=== PATIENT | male | born 1940 | race Caucasian/White ===

== ENCOUNTER 2016-06-21 04:30 | Outpatient (CLI) | payer MEDICARE, OTHER | END 2016-06-21 04:31 | disposition EMS.NT | DX: R40.0 Somnolence (principal) ==

== ENCOUNTER 2017-09-19 08:00 | Outpatient (CLI) | payer MEDICARE, OTHER | END 2017-09-19 08:01 | LOC: LAB.R 08:00 | PROVIDERS: ATTEND Nurse Practitioner Primary Care | DX: N30.00 Acute cystitis without hematuria (principal); E11.9 Type 2 diabetes mellitus without complications | CPT/HCPCS: 87086; 87181 ==

== ENCOUNTER 2018-09-18 20:56 | Outpatient (CLI) | payer MEDICARE, OTHER | END 2018-09-18 20:57 | disposition critical access hospital (66) | LOC: EMS 20:56 | PROVIDERS: ATTEND Surgery | DX: S01.111A Laceration without foreign body of right eyelid and periocular area, initial encounter (principal); W01.0XXA Fall on same level from slipping, tripping and stumbling without subsequent striking against object, initial encounter; Y93.01 Activity, walking, marching and hiking; Y92.009 Unspecified place in unspecified non-institutional (private) residence as the place of occurrence of the external cause | CPT/HCPCS: A0425; A0429 ==

== ENCOUNTER 2018-09-18 21:16 | Emergency (ER) | payer MEDICARE, OTHER ==
[2018-09-18] MEDS ORDERED: BUFFERED LIDOCAINE 10 ML SYRINGE SUBQ STA (21:24)
--- NOTE | 2018-09-18 22:32 | ED Physician Documentation ---
PD HPI Fall - Stated complaint Stated Complaint: GLF - Chief complaint Chief Complaint: Laceration - History obtained from History obtained from: Patient, Family, EMS - History of Present Illness Mechanism of injury: Tripped Fall distance: Standing position Where injury occurred: Home Timing - onset: Today Injury(ies) location: Face Quality of pain: Pain Associated symptoms: No: LOC, AMS, Amnesia, Nasal drainage, Neck pain, Weakness, Paresthesias, Dyspnea, Nausea / vomiting, Hematemesis, Abdominal distension Symptoms improve with: Rest Worsens with: Movement, Palpation Contributing factors: No: Anticoagulated, Intoxicated Similar symptoms before: Has not had sx before Recently seen: Not recently seen - Additional information Additional information: 78-year-old male with a history of Parkinson's who has deep brain stimulators in place as well as advancing dementia was using his walker today when he tripped and fell and hit his head against a side table. He did not have any loss of consciousness he was attended to by his who witnessed the fall and she was able to control bleeding with direct pressure she called the ambulance and the patient has been transported to the hospital. He denies any pain in his neck denies any nausea. Review of Systems Unable to obtain: Dementia, Other (hx from ) Constitutional: denies: Fever, Chills Nose: denies: Congestion Throat: denies: Sore throat Cardiac: denies: Chest pain / pressure Respiratory: denies: Dyspnea, Cough GI: reports: Constipation (usual). denies: Vomiting : denies: Dysuria Musculoskeletal: denies: Neck pain, Back pain, Extremity pain Neurologic: reports: Head injury. denies: Generalized weakness, LOC PD PAST MEDICAL HISTORY - Past Medical History Past Medical History: Yes Neuro: Alzhiemer's, Dementia, Parkinson's Endocrine/Autoimmune: Type 2 diabetes : Benign prostate hypertrophy - Present Medications Home Medications: Ambulatory Orders Medication Instructions Recorded Confirmed Carbidopa/Levodopa [Carbidopa-Levo 1.5 tab PO Q4HR 09/18/18 09/18/18 ER 25-100 Tab] Cyanocobalamin (Vitamin B-12) 1,000 mcg PO DAILY 09/18/18 09/18/18 [Vitamin B-12] Finasteride 5 mg PO QPM 09/18/18 09/18/18 Insulin Glargine [Lantus Solostar] 4 units SUBQ DAILY 09/18/18 09/18/18 Metformin HCl 1,000 mg PO BID 09/18/18 09/18/18 Quetiapine Fumarate 25 mg PO QPM 09/18/18 09/18/18 Tamsulosin HCl [Flomax] 1 cap PO QPM 09/18/18 09/18/18 - Allergies Allergies/Adverse Reactions: Allergies Allergy/AdvReac Type Severity Reaction Status Date / Time No Known Drug Allergies Allergy Verified 09/18/18 21:23 - Social History Does the pt smoke?: No Smoking Status: Never smoker Does the pt drink ETOH?: No Does the pt have substance abuse?: No - Immunizations Immunizations are current?: No Immunizations: TDAP >10years/unknown PD ED PE NORMAL - Vitals Vital signs reviewed: Yes (hypertensive ) - General General: No acute distress, Well developed/nourished - HEENT HEENT: PERRL, EOMI, Other (There is a 3cm burst laceration to the right lateral eyebrow and 2 other superficial lacerations above this one is 2cm one is 1cm.) - Neck Neck: Supple, no meningeal sign, No bony TTP - Respiratory Respiratory: No respiratory distress - Derm Derm: Normal color, Warm and dry, No rash - Extremities Extremities: No deformity, No edema - Neuro Neuro: No motor deficit, No sensory deficit, Normal speech Eye Opening: Spontaneous Motor: Obeys Commands Verbal: Confused GCS Score: 14 - Psych Psych: Normal mood, Normal affect Results - Vitals Vitals: Vital Signs - 24 hr 09/18/18 21:18 Temperature 35.9 C L Heart Rate 73 Respiratory 18 Rate Blood Pressure 158/76 H O2 Saturation 100 Oxygen O2 Source Room air Procedures - Laceration (location) right eyebrow Wound type: Irregular, Into subcut fat, Clean Neurovascular status: Sensory intact, Motor intact, Vascular intact Anesthesia: Lidocaine 1%, With bicarb Wound Preparation: Hibiclens, Irrigated copiously NS, Wound explored, To the base Skin layer closure: Nylon, Dermabond (to the 2 other superficial lacerations), Interrupted, Size #-0 - enter number (6-0) Other: Patient tolerated well, No complications, Neurovascular intact, Dressing applied, Tetanus booster given PD MEDICAL DECISION MAKING - ED course Complexity details: re-evaluated patient, considered differential, d/w patient, d/w family ED course: 78-year-old male with a fall and laceration above his right eye has a laceration repair done with nylon and Dermabond and he tolerates this well. He is updated on his tetanus. He will follow-up with Dr. Begum. Departure - Departure Disposition: 01 Home, Self Care Clinical Impression: Eyebrow laceration Qualifiers: Encounter type: initial encounter Laterality: right Qualified Code(s): S01.111A - Laceration without foreign body of right eyelid and periocular area, initial encounter Condition: Stable Instructions: ED Laceration Facial Skin Glue, ED Laceration Facial Sutr Tape Follow-Up: Víctor Begum MD [Primary Care Provider] - Comments: Sutures will need to be removed in 5 days.
[2018-09-18] MEDS ORDERED: TETANUS/DIPHTHERIA/PERTUSSIS 0.5 ML SYRINGE IM ONE (22:35)
[2018-09-18 23:08] VITALS: BP 157/77
== END 2018-09-18 23:08 | disposition home or self-care (01) ==
LOC: EDUNIT# → EDBD → ED 21:16
DX: S01.111A Laceration without foreign body of right eyelid and periocular area, initial encounter (principal); S01.81XA Laceration without foreign body of other part of head, initial encounter; W01.190A Fall on same level from slipping, tripping and stumbling with subsequent striking against furniture, initial encounter; Y93.01 Activity, walking, marching and hiking; Y92.009 Unspecified place in unspecified non-institutional (private) residence as the place of occurrence of the external cause; G30.9 Alzheimer's disease, unspecified; F02.80 Dementia in other diseases classified elsewhere, unspecified severity, without behavioral disturbance, psychotic disturbance, mood disturbance, and anxiety; G20 Parkinson's disease; E11.9 Type 2 diabetes mellitus without complications; Z79.84 Long term (current) use of oral hypoglycemic drugs
CPT/HCPCS: 12013; 90471

== ENCOUNTER 2019-06-14 08:50 | Outpatient (CLI) | payer MEDICARE, OTHER | END 2019-06-14 08:51 | disposition critical access hospital (66) | LOC: EMS 08:50 | PROVIDERS: ATTEND Surgery | DX: R56.9 Unspecified convulsions (principal); R73.09 Other abnormal glucose; R41.82 Altered mental status, unspecified | CPT/HCPCS: A0425; A0427 ==

== ENCOUNTER 2019-06-14 09:09 | Emergency (ER) | payer MEDICARE, OTHER ==
--- NOTE | 2019-06-14 09:22 | ED Physician Documentation ---
PD HPI SEIZURE - Stated complaint Stated Complaint: SZ - History obtained from History obtained from: EMS - History of Present Illness Timing - onset: Enter time (0700), Today Witnessed: Witnessed Number of seizures: Multiple Description of seizure activity: Generalized Injury during seizure: None History of seizures: Known seizure disorder Contributing factors: Low blood sugar Treatment BUTTON SEWER HAND: Dextrose Similar symptoms before: Diagnosis (seizure related to low blood sugar) Recently seen: Not recently seen - Additional information Additional information: 79 y/o male with Parkinsons and advanced dementia as well as diabetes takes lantus at night and he has seizure with low blood sugar. This morning he had a seizure and his blood sugar was 40. He was given juice and despite this had a second seizure again with low blood sugar and medics were called. They were not initially able to get an IV line in and he was given glucagon. They were able to establish a line and have administered D10. He has had a siezure related to low blood sugar yesterday as well. Review of Systems Unable to obtain: Dementia (advanced.) PD PAST MEDICAL HISTORY - Past Medical History Neuro: Alzhiemer's, Dementia, Parkinson's Endocrine/Autoimmune: Type 2 diabetes : Benign prostate hypertrophy - Present Medications Home Medications: Ambulatory Orders Medication Instructions Recorded Confirmed Carbidopa/Levodopa [Carbidopa-Levo 1.5 tab PO Q3HR 09/18/18 06/14/19 ER 25-100 Tab] Cyanocobalamin (Vitamin B-12) 1,000 mcg PO DAILY 09/18/18 06/14/19 [Vitamin B-12] Finasteride 5 mg PO DAILY 09/18/18 06/14/19 Insulin Glargine [Lantus Solostar] 20 units SUBQ DAILY PM 09/18/18 06/14/19 Quetiapine Fumarate 50 mg PO QPM 09/18/18 06/14/19 Tamsulosin HCl [Flomax] 1 cap PO DAILY 09/18/18 06/14/19 Ipratropium [place] 1 spray NS AC 06/14/19 06/14/19 Senna [Senokot] 8.6 mg PO DAILY 06/14/19 06/14/19 - Allergies Allergies/Adverse Reactions: Allergies Allergy/AdvReac Type Severity Reaction Status Date / Time No Known Drug Allergies Allergy Verified 06/14/19 09:24 - Social History Does the pt smoke?: No Smoking Status: Never smoker Does the pt drink ETOH?: No Does the pt have substance abuse?: No - Immunizations Immunizations are current?: No Immunizations: TDAP >10years/unknown PD ED PE NORMAL - Vitals Vital signs reviewed: Yes (normal ) - General General: No acute distress, Well developed/nourished, Other (Not saying much prefers to lay with eyes closed. ) - HEENT HEENT: Atraumatic - Neck Neck: Supple, no meningeal sign - Cardiac Cardiac: RRR, No murmur - Respiratory Respiratory: No respiratory distress, Clear bilaterally - Abdomen Abdomen: Soft, Non tender - Back Back: No CVA TTP, No spinal TTP - Derm Derm: Normal color, Warm and dry, No rash - Extremities Extremities: No deformity, Normal ROM s pain, No edema, No calf tenderness / cord - Neuro Neuro: No motor deficit, No sensory deficit Eye Opening: To Voice Motor: Obeys Commands Verbal: Confused GCS Score: 13 - Psych Psych: Normal mood, Normal affect Results - Vitals Vitals: Vital Signs - 24 hr 06/14/19 06/14/19 06/14/19 09:09 09:30 09:51 Temperature 35.9 C L Heart Rate 85 126 H 44 L Respiratory 10 L 11 L Rate Blood Pressure 130/61 141/54 H O2 Saturation 99 100 06/14/19 06/14/19 06/14/19 10:00 10:30 11:00 Temperature Heart Rate 37 L 45 L 41 L Respiratory 11 L 10 L 14 Rate Blood Pressure 118/60 125/58 L 108/52 L O2 Saturation 100 100 100 06/14/19 11:30 Temperature Heart Rate 43 L Respiratory 18 Rate Blood Pressure 138/93 H O2 Saturation 99 Oxygen O2 Source Room air - Labs Labs: Laboratory Tests 06/14/19 06/14/19 06/14/19 09:53 09:53 10:33 WBC 5.5 RBC 3.88 L Hgb 11.1 L Hct 35.7 L MCV 92.0 MCH 28.6 MCHC 31.1 L RDW 14.1 Plt Count 89 L MPV 9.7 Neut # (Auto) 4.8 Lymph # (Auto) 0.3 L Powell # (Auto) 0.3 Eos # (Auto) 0.1 Baso # (Auto) 0.0 Absolute Nucleated RBC 0.00 Nucleated RBC % 0.0 Sodium 140 Potassium 3.4 L Chloride 106 Carbon Dioxide 27 Anion Gap 7.0 BUN 24 H Creatinine 0.8 Estimated GFR (MDRD) 93 Glucose 182 H Calcium 8.5 Total Bilirubin 1.9 H AST 12 ALT < 10 L Alkaline Phosphatase 62 Total Protein 6.8 Albumin 3.8 Globulin 3.0 Albumin/Globulin Ratio 1.3 Lipase 21 L Urine Color DARK YELLOW Urine Clarity CLEAR Urine pH 6.0 Ur Specific [place] >=1.030 H Urine Protein NEGATIVE Urine Glucose (UA) 100 H Urine Ketones NEGATIVE Urine Occult Blood NEGATIVE Urine Nitrite NEGATIVE Urine Bilirubin NEGATIVE Urine Urobilinogen 0.2 (NORMAL) Ur Leukocyte Esterase NEGATIVE Ur Microscopic Review NOT INDICATED Urine Culture Comments NOT INDICATED PD MEDICAL DECISION MAKING - ED course Complexity details: reviewed old records, reviewed results, re-evaluated patient, considered differential, d/w patient ED course: 79 y/o male with parkinsons and advanced dementia has had a seizure related to low blood sugar and his blood sugar has been corrected. We have asked the shelter to check an evening glucose before giving the evening lantus dose. Departure - Departure Disposition: 01 Home, Self Care Clinical Impression: Seizures due to metabolic disorder, Hypoglycemia due to insulin Condition: Stable Instructions: ED Diabetes Hypoglycemia Insulin React Follow-Up: Víctor Begum MD [Provider Admit Priv/Credential] - Comments: Mr. Potts blood sugar should be checked in the evening prior to administration of his Lantus. If his blood sugar is below 150 he should not receive his Lantus. Discharge Date/Time: 06/14/19 12:15
[2019-06-14 10:11] LABS: BASOPHILS % (AUTO) 0.4 %; EOSINOPHILS # (AUTO) 0.1 10^3/uL (0.0-0.7); EOSINOPHILS % (AUTO) 2.2 %; HGB - HEMOGLOBIN 11.1 g/dL (14.0-18.0); LYMPHOCYTES # (AUTO) 0.3 10^3/uL (1.5-3.5); LYMPHOCYTES % (AUTO) 4.7 %; MEAN CORPUSCULAR HEMOGLOBIN 28.6 pg (27.0-31.0); MEAN CORPUSCULAR HGB CONC 31.1 g/dL (32.0-36.0); MEAN PLATELET VOLUME 9.7 fL (7.4-11.4); MONOCYTES # (AUTO) 0.3 10^3/uL (0.0-1.0); MONOCYTES % (AUTO) 5.2 %; NEUTROPHILS # (AUTO) 4.8 10^3/uL (1.5-6.6); PLT - PLATELET COUNT 89 10^3/uL (130-450); RED BLOOD COUNT 3.88 10^6/uL (4.70-6.10); RED CELL DISTRIBUTION WIDTH 14.1 % (12.0-15.0); WHITE BLOOD COUNT 5.5 x10^3/uL (4.8-10.8)
[2019-06-14 10:22] LABS: ALBUMIN 3.8 g/dL (3.2-5.5); ALBUMIN/GLOBULIN RATIO 1.3 (1.0-2.2); ALKALINE PHOSPHATASE 62 IU/L (42-121); ALT ALANINE AMINOTRANSFERASE < 10 IU/L (10-60); AST ASPARTATE AMINOTRANSFERASE 12 IU/L (10-42); BILIRUBIN,TOTAL 1.9 mg/dL (0.2-1.0); BUN - BLOOD UREA NITROGEN 24 mg/dL (6-20); CALCIUM 8.5 mg/dL (8.5-10.3); CARBON DIOXIDE - CO2 27 mmol/L (21-32); CHLORIDE 106 mmol/L (101-111); CREATININE 0.8 mg/dL (0.6-1.2); GLUCOSE 182 mg/dL (70-100); LIPASE 21 U/L (22-51); SODIUM 140 mmol/L (135-145); TOTAL PROTEIN 6.8 g/dL (6.7-8.2)
[2019-06-14 10:47] LABS: BILIRUBIN,URINE NEGATIVE (NEGATIVE); GLUCOSE, URINE (UA) 100 mg/dL (NEGATIVE); KETONES,URINE (UA) NEGATIVE (NEGATIVE); LEUKOCYTE ESTERASE, URINE NEGATIVE (NEGATIVE); NITRITE,URINE NEGATIVE (NEGATIVE); OCCULT BLOOD,URINE NEGATIVE (NEGATIVE); PROTEIN,URINE NEGATIVE (NEGATIVE); UROBILINOGEN,URINE 0.2 (NORMAL) E.U./dL (NORMAL)
[2019-06-14 10:49] LABS: CLARITY,URINE CLEAR (CLEAR)
[2019-06-14 11:34] VITALS: BP 138/93
== END 2019-06-14 12:15 | disposition home or self-care (01) ==
LOC: EDUNIT# → EDBD → ED 09:09
DX: E11.649 Type 2 diabetes mellitus with hypoglycemia without coma (principal); T38.3X5A Adverse effect of insulin and oral hypoglycemic [antidiabetic] drugs, initial encounter; G40.89 Other seizures; Z79.4 Long term (current) use of insulin; Y92.129 Unspecified place in nursing home as the place of occurrence of the external cause; G20 Parkinson's disease; F02.80 Dementia in other diseases classified elsewhere, unspecified severity, without behavioral disturbance, psychotic disturbance, mood disturbance, and anxiety; N40.0 Benign prostatic hyperplasia without lower urinary tract symptoms
CPT/HCPCS: 36415; 51701; 80053; 81001; 81003; 83690; 85025; 87086; 99281; 99283

== ENCOUNTER 2019-07-07 16:24 | Outpatient (CLI) | payer MEDICARE, OTHER ==
--- NOTE | 2019-07-07 18:02 | CONSULTATION NOTE ---
Palliative Care Consultation - Referral Referring Provider: Dr. Víctor Begum Time of Visit: [id number] Referral setting: Assisted living Referral Reason: Advanced Care Planning/Parkinson's Dementia/DM with Lows - Information Sources Records reviewed: Previous records reviewed History/Review of Systems obtained from: Family (/ISABELL Ortiz), Caregiver, Nursing Exam limitations: Clinical condition (Advanced dementia) - History of Present Illness Brief History of Present Illness: This is an 79-year-old gentleman who presents today at [facility] Memory care unit for initial palliative care consultation due to advanced Lewy body dementia, Parkinson's disease, and recent hypoglycemia with seizures in the setting of di abetes mellitus. Seen today with N95 with cover, goggle, gloves and gown. The patient was diagnosed with Parkinson's disease approximately 20 years ago. He first noted signs and symptoms when he was running there was not a swing with his left arm. He was an avid runner. He also developed a tongue thrust that was eventually controlled and managed with deep brain stimulator that was placed in 2012. Initially the patient's reports that he did not take any medications and then eventually progressed to taking levodopa/carbidopa. The reports that it has been a slow, progressive decline in regards to his Parkinson's disease. In the last 10 years he has started to have a more progressive decline. He has been seen by neurology at the [facility] for years. He is followed by Dr. Carey. His has had his battery changed to his DBS several times and it was last changed 2 years ago. Due to the patient's progression of his disease and difficulty to leave the facility his w july is not sure she wishes to continue with follow-up at this point in time. The patient developed cognitive issues in the last 2 years. Became increasingly difficult for the patient's for her to care for him at home and he transitioned to [facility] memory care unit in December 2018. The patient has a history of diabetes mellitus and is on Lantus. He has experienced several episodes of hypoglycemia resulting in seizure activity. Noted lows on 06/13 of 38, 06/14 of 69, and on 06/20 of 32. The patient was seen in the emergency department on 06/13 due to hypoglycemia. Due to these noted ep isodes of symptomatic hypoglycemia his Lantus has been drastically reduced. He is presently on 10 units daily. Upon review of his blood glucose log his fasting blood glucose levels have been as follows 174, 181, 141, 121, 132, 167. Staff have been administering an evening snack before bed and this has also assisted in stabilizing his blood glucose levels. Today, the patient is seen in his room sitting in his reclining chair. He has his soft book that he is fiddling with. Demonstrating no evidence of distress. Medical/Surgical History - Past Medical History Cardiovascular: reports: None (No prior history of tobacco use) Neuro: Dementia, Parkinson's Endocrine/Autoimmune: reports: Type 2 diabetes : reports: Benign prostate hypertrophy MRSA Hx?: No - Past Surgical History Other past surgical history: Deep Brain Stimulator 2012 - Substance History Use: Uses substance without health or social issues: NONE (No prior history of tobacco use) Social History - Living Situation Living arrangement: Assisted living Support System: The patient was residing at home until December 2018 when he transitioned to [facility]. Prior to his transition to [facility] he was receiving caregiving from his . He and his have been for 59 years. He has always been very active and on the go. He was a runner and a skier.He has always enjoyed gardening and reading. Is he and his have 3 children, 1 girl and 2 boys. Their daughter lives close by. The patient and his have belong to a Parkinson's support group. The members that they started with in the support group that had Parkinson's disease have all subsequently . Family History - Family History Family History: Mother: , Father: Family History Comment/Other: No family history of dementia. Medications/Allergies - Medications Home Medications: Ambulatory Orders Medication Instructions Recorded Confirmed Carbidopa/Levodopa [Carbidopa-Levo 1.5 tab PO Q3HR 09/18/18 06/14/19 ER 25-100 Tab] Cyanocobalamin (Vitamin B-12) 1,000 mcg PO DAILY 09/18/18 06/14/19 [Vitamin B-12] Finasteride 5 mg PO DAILY 09/18/18 06/14/19 Insulin Glargine [Lantus Solostar] 10 units SUBQ DAILY PM 09/18/18 06/14/19 Quetiapine Fumarate 50 mg PO QPM 09/18/18 06/14/19 Tamsulosin HCl [Flomax] 0.4 mg PO DAILY 09/18/18 06/14/19 Ipratropium [place] 1 spray NS AC 06/14/19 06/14/19 Senna [Senokot] 8.6 mg PO BID 06/14/19 06/14/19 Acetaminophen 500 mg PO Q4H PRN 07/07/19 07/07/19 Senna [Senokot] 8.6 mg PO BID PRN 07/07/19 07/07/19 - Allergies Allergies/Adverse Reactions: Allergies Allergy/AdvReac Type Severity Reaction Status Date / Time No Known Drug Allergies Allergy Verified 06/14/19 09:24 Review of Systems - Constitutional Constitutional: reports: Weight stable (weight 170.6lb 07/04/2019). denies: Fever - Eyes Eyes: denies: Irritation - Ears, Nose & Throat Ears, Nose & Throat: reports: Hearing loss, Hearing aids - Cardiovascular Cardiovascular: denies: Edema - Respiratory Respiratory: denies: Cough - Gastrointestinal Gastrointestinal: reports: Constipation, Good appetite. denies: Diarrhea, Vomiting - Genitourinary Genitourinary: reports: Incontinence - Musculoskeletal Musculoskeletal: reports: Stiffness, Muscle weakness, Assistive devices. denies: Joint swelling - Integumentary Integumentary: denies: Rash - Neurological Neurological: reports: General weakness, Memory problems - Psychiatric Psychiatric: denies: Behavior disturbances - Endocrine Endocrine: reports: Diabetes type 2 - Hematologic/Lymphatic Hematologic/Lymphatic: reports: Recurrent infections (history of UTIs) - All Other Systems All Other Systems: reports: Reviewed and negative (ROS obtained from , caregivers and nursing due to patient's advanced dementia.) Physical Exam - Vital Signs Temperature: 36.4 C Pulse Rate: 79 O2 Saturation: 95 (on RA at rest) Blood Pressure: 140/82 (right wrist cuff) - Physical Exam General Appearance: positive: No acute distress, Alert Eyes Bilateral: positive: Normal inspection ENT: positive: No signs of dehydration Neck: positive: No JVD, Trachea midline Cardiovascular: positive: Regular rate & rhythm, Systolic murmur (1/6 ALEENA (established)) Respiratory: positive: No respiratory distress, Breath sounds nml. negative: Rhonchi Abdomen: positive: Non-tender, Soft, Nml bowel sounds Skin: positive: Other (visible skin warm, dry and intact) Extremities: positive: Pedal edema (trace BLE edema). negative: Joint swelling Neurologic/Psychiatric: positive: Disoriented to person, Disoriented to place, Disoriented to time, Unintelligible speech (mumbles and essentially nonverbal), Other (strong medical fee clerk bilaterally; unable to follow commands; no noted tremor; some rigidity noted) Palliative Care - POLST Patient has POLST: Yes POLST Status: DNR, Selective Treatment Pain: No pain Sleep: Sleeps well Constipation: Yes Performance Status: When he moved into [facility] in December 2018 he was a 1 person assist with a gait belt. Now due to his leaning with a walker he has in a tilt in space wheelchair. He is a 2 person transfer. He is incontinent of bowel and bladder. FAST 7C - Palliative Care Discussion: The patient has experienced a slow cognitive progressive decline due to his Parkinson's disease. In the last 2 years he has had cognitive decline due to Lewy body dementia. He was a difficult decision for the patient's and Sukhdev DEVI to transition the patient to [facility] as she was his sole caregiver. However, she recognizes that the staff at [facility] take very good care of the patient and she is grateful for their service but she wishes that she was able to keep the patient at home. The reports that the patient has always had to her in the past that they can "get through anything if they do it together." The does not see a decline in the patient's functional status since his moving into [facility] in December 2018. She reports that he continues to have good days and bad days. The staff at [facility] noticed an overall functional decline since his move and date. Prior to the coronavirus pandemic the patient's would visit routinely and provide companionship, assistance with caregiving, and a lot of activities for the patient. He is someone that has always been active and moving. His describes him as "always doing things." He enjoys cards, puzzles and will fidget with many items. It has been difficult for the to not be able to be present with the patient during the coronavirus pandemic as the facility is on lockdown for the safety of the residents. She has been able to face time with the patient but he does not grasp what is occurring and will not engage. At one point she also visited outside his window but again, he did not interact and engage. The 's fear is that when restrictions are lifted and she is again able to visit the patients that he will no longer recognize her. Impression and Recommendations - Palliative Care Impression: This is an 79-year-old gentleman with advanced Lewy body dementia and Parkinson's disease. He has had stabilization of his blood glucose levels without symptomatic hypoglycemia. Palliative care to continue to provide pain and symptom management, exploration of goals of care, and anticipatory guidance. Recommendations/Counseling Done: 1. Lewy Body Dementia due to Parkinson's Disease. Chronic. Progressive. Supportive Care. Fall precautions. No behavioral concerns reported by staff. On no disease modifying agents. Continue seroquel 50mg nightly. Disease progression reviewed with with questions answered and addressed. 2. Parkinson's Disease. Diagnosed over 20 years. DBS placed in 2012. Has been followed by [facility] neurology--will request records. Chronic. Progressive. Provide supportive care to patient and spouse. Continue use of tilt in space wheelchair for support and transport to maintain interaction with activities at the facility. Spouse to contact neurology regarding battery change for DBS as she is considering not proceeding with the intervention due to the patient's advanced of disease and difficulty to leave the facility. 3. Hypoglycemia with recent seizure activity. Resolved. Goal to have blood glucose level above 100. No change in Lantus dosage at this time. Continue Lantus 10units daily with hold if blood glucose level is less than 150 and adjust as needed to maintain level above 100. Given the patient's risk of hypoglycemia, advanced age and co-morbidities, goal HgA1C is 7-8%. 4. Constipation. Not controlled. Increase senna to 8.6mg BID and hold for loose stools. Continue to monitor and adjust bowel regimen as needed. 5. Advanced care planning. POLST in place as DNAR with selective treatments. Began to touch on end of life goals today with spouse/DPOA. Supportive listening provided. Will continue to build rapport to establish end of life goals, goals of care and advanced care planning. Time Spent: CPT 10073 POC reviewed with /DPOA at length with review of palliative care philosophy as well. Review of symptom management and anticipatory guidance. disclaimer: The chart note was formulated using voice recognition technology and unfortunately sound alike errors may occur.
== END 2019-07-07 16:25 | disposition home or self-care (01) ==
LOC: PC 16:24
PROVIDERS: ATTEND Nurse Practitioner Family
DX: Z51.5 Encounter for palliative care (principal); G31.83 Neurocognitive disorder with Lewy bodies; F02.80 Dementia in other diseases classified elsewhere, unspecified severity, without behavioral disturbance, psychotic disturbance, mood disturbance, and anxiety; E11.649 Type 2 diabetes mellitus with hypoglycemia without coma; K59.00 Constipation, unspecified; Z79.899 Other long term (current) drug therapy; Z79.4 Long term (current) use of insulin; Z96.82 Presence of neurostimulator; Z66 Do not resuscitate

== ENCOUNTER 2019-08-23 14:45 | Outpatient (CLI) | payer MEDICARE, OTHER ==
--- NOTE | 2019-08-23 17:04 | CONSULTATION NOTE ---
Palliative Care Follow Up - Referral Referring Provider: Dr. Víctor Begum Time of Visit: [id number] Referral setting: Assisted living Referral Reason: Parkinson's Dementia/Excess cerumen - Information Sources Records reviewed: Previous records reviewed History/Review of Systems obtained from: Family (/ISABELL Ortiz via phone), Caregiver, Nursing Exam limitations: Clinical condition (Advanced dementia) - History of Present Illness Update Brief HPI Update: This is an 79-year-old man who was seen in follow-up today at [facility] care unit for follow-up regarding advanced Lewy body dementia, Parkinson's disease, diabetes mellitus type 2 with history of hypoglycemia, excess cerumen and constipation. See dictated HPI from July 07, 2019 for details. The patient is significantly hard of hearing and wears bilateral hearing aids. The patient's /D SHANDRA had requested that his ears be evaluated for cerumen. If the hearing aids are not turned on or in there is a noted deficit in the patient's awareness of his surroundings due to lack of input. The patient has a history of diabetes mellitus type 2 and is on Lantus. He has experienced several episodes of hypoglycemia resulting in seizure activity. He was last seen in the emergency department on 06/13 due to hypoglycemia. He is presently on Lantus 10 units nightly to be held if his blood glucose level is less than 150. His fasting blood glucose levels have been as follows, 95, 99, 143, 177, 107, 102, 154, 132, 102, 103, 174, 221, 116, 122, 269, 101, 191, 191, 242, 175, 136, 125. Per the patient's /Sukhdev Ortiz, the patient has a longstanding history of constipation. Typically this is resolved with routine administration of activity a yogurt. The patient's bring this this to the facility routinely for administration.Upon review of the patient's defecation history he can have up to 4 to 5 days between bowel movements. He is presently on senna 8.6 mg nightly. Staff have needed to administer as needed senna 8.6 mg for constipation with positive results. The patient's weight presently remains stable. He presently weighs 167 pounds. No behavioral issues reported by staff or concerns revolving oral intake. Today, the patient is seen in his room sitting in his reclining chair. He has a new soft book that he is holding while dozing. No evidence of distress. Patient has a past medical history of advanced Parkinson's disease with status post deep brain stimulation surgery in 2011, Parkinson's associated dementia, ?Lewy body dementia, diabetes mellitus type 2, BPH,History of falls. Social History - Living Situation Living arrangement: Assisted living Support System: The patient presently resides at [facility] where he moved into in December 2018. Prior to his transition to [facility] he was receiving caregiving from his at home. He has have been for 59 years. The patient was an extremely active individual and always on the go. Medications/Allergies - Medications Home Medications: Ambulatory Orders Medication Instructions Recorded Confirmed Carbidopa/Levodopa [Carbidopa-Levo 1.5 tab PO Q3HR 09/18/18 08/24/19 ER 25-100 Tab] Cyanocobalamin (Vitamin B-12) 1,000 mcg PO DAILY 09/18/18 08/24/19 [Vitamin B-12] Finasteride 5 mg PO DAILY 09/18/18 08/24/19 Insulin Glargine [Lantus Solostar] 10 units SUBQ DAILY PM 09/18/18 08/24/19 Quetiapine Fumarate 50 mg PO QPM 09/18/18 08/24/19 Tamsulosin HCl [Flomax] 0.4 mg PO DAILY 09/18/18 08/24/19 Ipratropium [place] 1 spray NS AC 06/14/19 08/24/19 Senna [Senokot] 8.6 mg PO BID 06/14/19 08/24/19 Acetaminophen 500 mg PO Q4H PRN 07/07/19 08/24/19 Senna [Senokot] 8.6 mg PO BID PRN 07/07/19 08/24/19 polyethylene glycoL 3350 [Miralax] 17 g PO DAILY MDD hold for loose 08/24/19 08/24/19 stools - Allergies Allergies/Adverse Reactions: Allergies Allergy/AdvReac Type Severity Reaction Status Date / Time No Known Drug Allergies Allergy Verified 06/14/19 09:24 Review of Systems - Constitutional Constitutional: reports: Weight stable (weight 167lb). denies: Fever - Eyes Eyes: denies: Irritation - Ears, Nose & Throat Ears, Nose & Throat: reports: Hearing loss, Hearing aids - Cardiovascular Cardiovascular: denies: Edema - Respiratory Respiratory: denies: Cough - Gastrointestinal Gastrointestinal: reports: Constipation, Good appetite. denies: Abdominal pain, Diarrhea, Vomiting - Genitourinary Genitourinary: reports: Incontinence - Musculoskeletal Musculoskeletal: reports: Stiffness, Muscle weakness, Assistive devices, Transfer issues. denies: Joint pain - Integumentary Integumentary: denies: Rash - Neurological Neurological: reports: General weakness, Memory problems - Psychiatric Psychiatric: denies: Behavior disturbances - Endocrine Endocrine: reports: Diabetes type 2 - Hematologic/Lymphatic Hematologic/Lymphatic: reports: Recurrent infections (history of UTIs) - All Other Systems All Other Systems: reports: Reviewed and negative (Due to dementia, ROS obtained from , caregivers and nursing staff.) Physical Exam - Vital Signs Temperature: 97.5 C Pulse Rate: 52 O2 Saturation: 98 (on RA at rest) Blood Pressure: 132/68 (left wrist cuff) - Physical Exam General Appearance: positive: No acute distress, Alert, Other (sitting in recliner, intermittently dozing and arousable) Eyes Bilateral: positive: Normal inspection ENT: positive: No signs of dehydration, Other (soft, dark yellow cerumen noted to b/l ear cannals after hearing aids removed. Otoscope and lighted currette used to remove excess cerumen with TMs clear and intact.) Neck: positive: Trachea midline Cardiovascular: positive: Bradycardia, Systolic murmur (1/6 ALEENA, established) Respiratory: positive: No respiratory distress, Breath sounds nml Abdomen: positive: Non-tender, Soft, Nml bowel sounds. negative: Distended Skin: positive: Other (resolving ecchymosis to left hand) Extremities: positive: No pedal edema Neurologic/Psychiatric: positive: Disoriented to person, Disoriented to place, Disoriented to time, Unintelligible speech (mumbles and essentially nonverbal), Other (no noted resting tremor; no oral-buccal movements; noted rigidity bilateraly with strong geophysical operator.) Palliative Care - POLST Patient has POLST: Yes POLST Status: DNR, Selective Treatment Pain: No pain Anorexia: None Sleep: Sleeps well Constipation: Intermittent constipation (miminal improvement with senna 8.6mg nightly) Performance Status: Patient prior to moving into [facility] unit in December 2018 with one-person assist with a gait belt. He now requires a tilt in space wheelchair. He is a two-person transfer. He is incontinent of bowel and bladder. FAS T7 C - Palliative Care Discussion: Due to the coronavirus pandemic the patient's has been unable to come into the facility and this is been extremely difficult for her as she has been his sole primary caregiver over the last several years. Given the new policies from the facility the patient's /D SHANDRA and his daughter were able to visit outside socially distanced for the first time in many months. The reports this was an extremely happy time and she enjoyed her interaction with her . She is also especially grateful that she was able to see him in person as she has an upcoming knee surgery. She continues to be aware of his cognitive changes but continues to not fully see his overall functional decline since he moved into [facility] memory care unit. She continues to report that the patient has good days and bad days. Impression and Recommendations - Palliative Care Impression: This is an 79-year-old gentleman with a history of advanced Parkinson's disease, Parkinson's associated dementia, and questionable Lewy body dementia. His blood glucose levels have stabilized and no noted episodes of hypoglycemia. Consider through home periods of constipation not completely managed with present bowel regimen. Palliative care to continue to provide symptom management, exploration of goals of care, and anticipatory guidance. Recommendations/Counseling Done: 1. Excess cerumen to b/l ear canals. Lighted currette and otoscope used to remove excess cerumen, tolerated well and b/l TMs intact. Will continue to monitor as patient has hearing aids and wish to limit impact cerumen has on his hearing function. 2. Constipation. Continues to not be fully controlled with long standing history. Start miralax 17gram po daily, dissolve in 4 ounces of liquid and hold for loose stools. Continue senna 8.6mg nightly. Continue PRN senna as ordered. Continue to monitor and adjust bowel regimen as needed. 3. Diabetes mellitus type 2 with history of hypoglycemia. Patient has had a history of seizure activity due to symptomatic hypoglycemia that has resolved. Noted 3 episodes of his blood glucose levels above 200. No change to Lantus dose at this time and continue 10 units daily and hold if blood glucose level is less than 150. Given the patient's risk of hypoglycemia, advanced age and comorbidities a goal hemoglobin A1c is 7 to 8%. 4. Parkinson's disease. Diagnosed over 20 years ago. DBS placed in 2011. Chronic. Progressive. Continue to provide support for the patient's regarding her caregiver burden. Continue to be followed by [facility] neurology. 5. 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 Progressive. Supportive Care. Fall precautions. No behavioral concerns reported by staff. On no disease modifying agents. Continue seroquel 50mg nightly for aggitation that is presently controlled. Given the patient's advanced age, dementia and chronic co-morbidities, a gradual decline is expected. 6. Advance care planning. POLST in place as DNR with selective treatments. has an upcoming procedure and was quite happy to be able to see her spouse after remaining apart for several months physically due to the coronavirus pandemic. We will continue to build rapport to establish end-of-life goals and advance care planning. Time Spent: CPT 46814 Plan of care reviewed with /D POA with medication adjustments and cerumen removal with agreement regarding plan of care. Supportive listening provided. Disclaimer: The chart note was formulated using voice recognition technology and unfortunately sound alike errors may occur.
== END 2019-08-23 14:46 | disposition home or self-care (01) ==
LOC: PC 14:45
PROVIDERS: ATTEND Nurse Practitioner Family
DX: Z51.5 Encounter for palliative care (principal); G20 Parkinson's disease; F02.80 Dementia in other diseases classified elsewhere, unspecified severity, without behavioral disturbance, psychotic disturbance, mood disturbance, and anxiety; K59.00 Constipation, unspecified; H61.23 Impacted cerumen, bilateral; H91.93 Unspecified hearing loss, bilateral; E11.9 Type 2 diabetes mellitus without complications; Z79.899 Other long term (current) drug therapy; Z79.4 Long term (current) use of insulin; Z86.39 Personal history of other endocrine, nutritional and metabolic disease; Z66 Do not resuscitate

== ENCOUNTER 2019-10-27 12:49 | Outpatient (CLI) | payer MEDICARE, OTHER ==
--- NOTE | 2019-10-27 14:05 | CONSULTATION NOTE ---
Palliative Care Follow Up - Referral Referring Provider: Dr. Víctor Begum Time of Visit: Initiation of visit at 1150 Referral setting: Assisted living Referral Reason: Parkinson's Dementia/Constipation/Type II DM - Information Sources Records reviewed: Previous records reviewed History/Review of Systems obtained from: Patient, Nursing Exam limitations: Clinical condition (Advanced Dementia) - History of Present Illness Update Brief HPI Update: This is an 79-year-old gentleman who was seen in follow-up today at [facility] care unit regarding advanced Parkinson's disease, dementia, diabetes mellitus type 2 with recent history of hyperglycemia and constipation. See dictated HPI from July 07, 2019 full details. The patient has a history of diabetes mellitus type 2 and is on Lantus. Earlier in the spring 2019 he experienced several episodes of hypoglycemia resulting in seizure activity. He was seen in the emergency department on 06/13 due to hypoglycemia. He is presently on Lantus 14 units nightly that was initiated on 10/21/2019 after several reported episodes of hyperglycemia. Highest blood glucose fasting was reported at 522 on 10/20. The patient was receiving health shakes 3 times daily. As this could have been a contributing factor to his elevation in blood glucose levels this was discontinued and his has subsequently brought Glucerna and he is to have this twice daily due to his weight loss and failure to thrive due to dementia.Blood glucose levels are as follows prior to dose [id number], 187, 146, 189, 196, 130, 225, 244, 166, 192, 299, 253, 195, 150, 294, 270, 281, 327, 285. Since adjustment of patient's Lantus dose his blood glucose levels have been as follows 213, 253, 210, 181, 261. The patient is a longstanding history of constipation. His provides yogurt that is administered by the facility staff. Despite adjustment in patient's bowel regimen on last evaluation he continues to have significant gaps between periods of defecation. His latest length of time has been a 6-day gap. He is presently on senna 8.6 mg nightly and miralax 17gram daily. The patient's /D Diana DEVI is expresses concern that the patient's may have difficulty swallowing as he continues to have a weight loss trends. Presently the patient weighs 148.8 pounds. Reviewed with facilities staff caregivers and nursing as the patient is assisted at mealtime no noted throat clearing or coughing as evidence of dysphasia have been noted. reports that she has provided allowance for the onsite service desk manager to perform foot care and nail care for the patient this week. Today the patient is seen in his tilt in space wheelchair at the dining table awaiting lunch. He has a blanket in his lap. When performing vital sign assessment he demonstrated a strong online merchant and not wanting to let go of the pulse oximeter. No evidence of distress. Patient has a past medical history of advanced Parkinson's disease status post deep brain stimulation surgery and 2011, Parkinson's associated the dementia, questionable Lewy body dementia, diabetes mellitus type 2, BPH, history of fal ls. Social History - Living Situation Living arrangement: Assisted living Support System: The patient resides at [facility] where he moved into in December 2018. Prior to his transition to [facility] he was receiving caregiving at home from his . He and his have been for 59 years. The patient was an extremely active in individual and was always on the go. Medications/Allergies - Medications Home Medications: Ambulatory Orders Medication Instructions Recorded Confirmed Carbidopa/Levodopa [Carbidopa-Levo 1.5 tab PO Q3HR 09/18/18 08/24/19 ER 25-100 Tab] Cyanocobalamin (Vitamin B-12) 1,000 mcg PO DAILY 09/18/18 08/24/19 [Vitamin B-12] Finasteride 5 mg PO DAILY 09/18/18 08/24/19 Insulin Glargine [Lantus Solostar] 14 units SUBQ DAILY PM 09/18/18 08/24/19 Quetiapine Fumarate 50 mg PO QPM 09/18/18 08/24/19 Tamsulosin HCl [Flomax] 0.4 mg PO DAILY 09/18/18 08/24/19 Ipratropium [place] 1 spray NS AC 06/14/19 08/24/19 Senna [Senokot] 2 tab PO QPM MDD hold for loose 06/14/19 08/24/19 stools Acetaminophen 500 mg PO Q4H PRN 07/07/19 08/24/19 Senna [Senokot] 8.6 mg PO BID PRN 07/07/19 08/24/19 polyethylene glycoL 3350 [Miralax] 17 g PO DAILY MDD hold for loose 08/24/19 08/24/19 stools - Allergies Allergies/Adverse Reactions: Allergies Allergy/AdvReac Type Severity Reaction Status Date / Time No Known Drug Allergies Allergy Verified 06/14/19 09:24 Review of Systems - Constitutional Constitutional: reports: Weight loss (weight 148.8lb; 167lb 08/23/2019) - Eyes Eyes: denies: Irritation - Ears, Nose & Throat Ears, Nose & Throat: reports: Hearing loss, Hearing aids - Cardiovascular Cardiovascular: denies: Edema - Respiratory Respiratory: reports: Other (see HPI for additional details). denies: Cough - Gastrointestinal Gastrointestinal: reports: Constipation. denies: Abdominal pain, Diarrhea, Vomiting - Genitourinary Genitourinary: reports: Incontinence - Musculoskeletal Musculoskeletal: reports: Stiffness, Muscle weakness, Assistive devices, Transfer issues. denies: Joint pain - Integumentary Integumentary: denies: Rash - Neurological Neurological: reports: General weakness, Memory problems - Psychiatric Psychiatric: denies: Behavior disturbances - Endocrine Endocrine: reports: Diabetes type 2 - Hematologic/Lymphatic Hematologic/Lymphatic: reports: Recurrent infections (history of UTIs) - All Other Systems All Other Systems: reports: Reviewed and negative (Due to dementia supplemental review of systems obtained from caregivers and nursing staff.) Physical Exam - Vital Signs Temperature: 36.4 C Pulse Rate: 61 Blood Pressure: 118/77 (left wrist cuff) - Physical Exam General Appearance: positive: No acute distress, Alert, Other (OOB in tilt in space w/c) Eyes Bilateral: positive: Normal inspection ENT: positive: No signs of dehydration, Other (bilateral ear canals without excess cerumen; +hearing aids) Neck: positive: Trachea midline Cardiovascular: positive: Regular rate & rhythm, Systolic murmur (soft 1/6SEM, established) Respiratory: positive: No respiratory distress, Diminished in bases Abdomen: positive: Non-tender, Soft, Nml bowel sounds. negative: Distended Skin: positive: No symptoms Extremities: positive: No pedal edema, Other (strong online merchant 5/5 with bilateral hands) Neurologic/Psychiatric: positive: Disoriented to person, Disoriented to place, Disoriented to time, Unintelligible speech (mumbles), Other (+rigidity; no resting tremor noted) Palliative Care - POLST Patient has POLST: Yes POLST Status: DNR, Selective Treatment Pain: No pain Sleep: Sleeps well Constipation: Yes Performance Status: Prior to the patient moving into [facility] unit in December 2018 he was a 1 person assist with a gait belt. Now he is not ambulatory and requires a tilt in space wheelchair. He is a two-person transfer. He is incontinent of bowel and bladder. FAS T7 C - Palliative Care Discussion: The patient has had recent episodes of hyperglycemia and has been asymptomatic. These episodes were likely due to an increase in his supplemental health shakes with an increase of simple sugars for his trending weight loss. His Lantus dose has been adjusted with blood glucose levels below 300 since recent adjustment. The patient does have a history prior of hypoglycemia episodes that have resulted in seizure activity. The patient requires assistance at mealtimes with no evidence of dysphasia reported by staff. It has been difficult for the patient's /D POA, Diana has prior to the coronavirus she was coming daily to the facility to oversee the patient's care. She is presently visiting the patient every 2 weeks socially distance outside. She was initially concerned that the time of the way from the patient's would result in disruption and confusion but she reports that he has tolerated this well as he "does not have any concept of time elapsing." The patient continues with a noted weight loss that continues to trend slightly down. Presently weight is at 148.8 pounds and previously he was 167 in August 2019. The patient's expresses concern that the patient may have underlying dysphasia contributing to weight loss. Provided reassurance to the patient's /D POA that it is unlikely to be dysphasia as the facility staff who assist with mealtime have not noted any evidence of underlying dysphasia and reviewed with the patient's the progression of a chronic illness such as Parkinson's disease and Parkinson's disease dementia and this gradual weight loss is not unexpected.The patient continues with a noted weight loss that continues to trend slightly down. Presently weight is at 148.8 pounds and previously he was 167 in August 2019. The patient's expresses concern that the patient may have underlying dysphasia contributing to weight loss. Provided reassurance to the patient's /D POA that it is unlikely to be dysphasia as the facility staff who assist with mealtime have not noted any evidence of underlying dysphasia and reviewed with the patient's the progression of a chronic illness such as Parkinson's disease and Parkinson's disease dementia and this gradual weight loss is not unexpected. Impression and Recommendations - Palliative Care Impression: This is an 79-year-old man with a history advanced Parkinson's disease, Parkinson's associated dementia and questionable Lewy body dementia. He has had recent episodes of hypoglycemia requiring adjust meant of his Lantus dosage. He also continues to have periods of constipation and requires adjustment of his bowel regimen. Palliative care to continue provide symptom management, exploration of goals of care, and anticipatory guidance. Recommendations/Counseling Done: 1.Failure to thrive. Patient noted to have a trending gradual weight loss.He presently weighs 148.8 pounds and has had an approximate 19 pound weight loss since August 2019. Staff continue to provide support at mealtimes with no evidence of dysphasia. Patient is presently on Glucerna twice daily for caloric supplementation. Given the patient's advanced chronic illnesses this weight lo ss is not unexpected and this disease progression was reviewed with the patient's was supportive listening provided. We will continue to monitor weekly weight trends. 2. Diabetes mellitus type 2 with hyperglycemia. Patient has had a history of seizure activity due to symptomatic hypoglycemia that occurred in the spring 2019. Lantus dose increased to 14 units nightly on 10/21/201920 due to patient having elevated blood glucose levels above 300 with the highest reported of 522. The patient was asymptomatic. Given the patient's advanced age and comorbidities a goal hemoglobin A1c is 7 to 8%. Request that blood glucose log be faxed to [facility] to review the week of 11/15/2019 for any additional dose adjustments. 3. Constipation. Longstanding history of constipation. Increase senna to 2 tablets nightly and hold for loose stool. Continue MiraLAX 17 g daily dissolved in 4 ounces of liquid and hold for loose stools. Continue PRN senna as ordered. Continue to monitor and adjust bowel regimen as needed. 4. Parkinson's disease. Diagnosed over 20 years ago. DBS placed in 2011. Chronic. Progressive. Continue to provide support for the patient's regarding caregiver burden. Continue to be followed by [facility] neurology. 5. 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 Progressive. Supportive care. Fall precautions. No behavioral concerns reported by staff. On no disease modifying agents. Continue Seroquel 50 mg nightly for agitation that is presently controlled. Consider if symptoms are controlled a trial dose reduction of Seroquel in the future. Given the patient's advanced age, dementia and chronic comorbidities a gradual decline is expected. Time Spent: CPT 76347 Care coordination with nursing staff. Plan of care reviewed with /D Diana DEVI as well as medication adjustments with questions answered and addressed. Reviewed disease progression of dementia and expected weight loss trends. Supportive listening provided. Disclaimer: The chart note was formulated using voice recognition technology and unfortunately sound alike errors may occur.
== END 2019-10-27 12:50 | disposition home or self-care (01) ==
LOC: PC 12:49
PROVIDERS: ATTEND Nurse Practitioner Family
DX: Z51.5 Encounter for palliative care (principal); R62.7 Adult failure to thrive; E11.65 Type 2 diabetes mellitus with hyperglycemia; G20 Parkinson's disease; F02.80 Dementia in other diseases classified elsewhere, unspecified severity, without behavioral disturbance, psychotic disturbance, mood disturbance, and anxiety; K59.00 Constipation, unspecified; R15.9 Full incontinence of feces; R32 Unspecified urinary incontinence; Z79.899 Other long term (current) drug therapy; Z79.4 Long term (current) use of insulin; Z99.3 Dependence on wheelchair; Z66 Do not resuscitate

== ENCOUNTER 2020-02-16 10:30 | Outpatient (CLI) | payer MEDICARE, OTHER ==
--- NOTE | 2020-02-16 11:42 | PROVIDER PROGRESS NOTE ---
HPI/Interval History - HPI/Interval History This is an 79-year-old gentleman who was seen in follow-up today at [facility] due to recent diagnosis of coronavirus, follow-up due to advanced Parkinson's disease, dementia and diabetes mellitus type 2 via telemedicine with facility RN, Tammy bailey. Please see dictated HPI from July 07, 2019 for full details. The patient was diagnosed with coronavirus 01/26/2020. He has done remarkably well and has not had any respiratory symptoms per staff report. His oxygen carlos manuel on levels remained stable. Overall, the patient remains at his baseline. The patient has a history of diabetes mellitus type 2 and is on Lantus 14 units nightly. Early in spring 2019 he experienced several episodes of hypoglycemia resulting in seizure activity. He was seen in the emergency department on 06/14/2019 due to hypoglycemia. Upon review of blood glucose trends he has been slightly elevated from his baseline likely due to underlying diagnosis of coronavirus but still remains in a reasonable range. Blood glucose levels fasting have been 102-96. The patient has a longstanding history of constipation and his continues to bring in yogurt that is administered by the facility staff. He continues to have a bowel regimen with senna and MiraLAX standing to optimize his bowel fu nction. Staff denying any acute behavioral concerns and no recent falls. The patient is seen out of bed in his tilt in space wheelchair at the dining table initially asleep. Easily arousable by facility RN and with no visible evidence of distress. Patient has a past medical history of advanced Parkinson's disease status post deep brain stimulation surgery 2011, Parkinson's associated dementia, questionable Lewy body dementia, diabetes mellitus type 2, BPH, history of falls, coronavirus 01/2020. Review of Systems - Constitutional Constitutional: reports: Weight loss (143.4lb 02/15/2020; 167lb 08/23/2019). denies: Fever - Eyes Eyes: denies: Irritation - Ears, Nose & Throat Ears, Nose & Throat: reports: Hearing loss, Hearing aids - Cardiovascular Cardiovascular: denies: Edema - Respiratory Respiratory: denies: Cough, Wheezing - Gastrointestinal Gastrointestinal: reports: Constipation (managed). denies: Vomiting - Genitourinary Genitourinary: reports: Incontinence - Musculoskeletal Musculoskeletal: reports: Stiffness, Muscle weakness, Assistive devices, Transfer issues - Integumentary Integumentary: denies: Rash - Neurological Neurological: reports: General weakness, Memory problems - Psychiatric Psychiatric: denies: Behavior disturbances - Endocrine Endocrine: reports: Diabetes type 2 - All Other Systems All Other Systems: reports: Reviewed and negative (Review of systems is limited as patient essentially has unintelligible speech. Review of systems supplemented by a facility RNTammy.) Medications/Allergies - Medications Home Medications: Ambulatory Orders Medication Instructions Recorded Confirmed Carbidopa/Levodopa [Carbidopa-Levo 1.5 tab PO Q3HR 09/18/18 02/16/20 ER 25-100 Tab] Cyanocobalamin (Vitamin B-12) 1,000 mcg PO DAILY 09/18/18 02/16/20 [Vitamin B-12] Finasteride 5 mg PO DAILY 09/18/18 02/16/20 Insulin Glargine [Lantus Solostar] 14 units SUBQ DAILY PM 09/18/18 02/16/20 Quetiapine Fumarate 50 mg PO QPM 09/18/18 02/16/20 Tamsulosin HCl [Flomax] 0.4 mg PO DAILY 09/18/18 02/16/20 Ipratropium [place] 1 spray NS AC 06/14/19 02/16/20 Senna [Senokot] 2 tab PO QPM MDD hold for loose 06/14/19 02/16/20 stools Acetaminophen 500 mg PO Q4H PRN 07/07/19 02/16/20 Senna [Senokot] 8.6 mg PO BID PRN 07/07/19 02/16/20 polyethylene glycoL 3350 [Miralax] 17 g PO DAILY MDD hold for loose 08/24/19 02/16/20 stools Morphine Sulfate [Morphine Sulf 5 mg PO Q2H PRN 02/16/20 02/16/20 Oral (Roxanol)] - Allergies Allergies/Adverse Reactions: Allergies Allergy/AdvReac Type Severity Reaction Status Date / Time No Known Drug Allergies Allergy Verified 02/16/20 11:58 Physical Exam - Physical Exam Vital signs 97.4F, 18, 66, 123/73, 96% on RA General: vital signs reviewed, NAD, thin, sitting up in tilt in space wheelchair ENT: no oral secretions noted, +hearing aids Eyes: normal inspection Neck:trachea midline CV: no edema Respiratory: no respiratory distress, even respirations, no audible advantageous lung sounds Skin: visible skin intact Neuro: disoriented x 3, mumbles, +rigidity Palliative Care - POLST Patient has POLST: Yes POLST Status: DNR, Selective Treatment Pain: No pain Constipation: Yes, Managed Performance Status: FAST 7C - Palliative Care Discussion: The patient unfortunately contracted coronavirus 01/26/2020 bites, has done very well in his clinical course. He is not develop any respiratory symptoms and remains at his baseline functional status much to the relief and pleasure of his /DPOA, Diana. Diana ultimately wishes the patient to be comfortable and made a point of asking during our phone call to ensure that the patient appeared comfortable. Reviewed that his blood glucose levels have remained less than 300 since development of the coronavirus and they are likely more elevated than usual due to underlying recent infection and will continue to monitor. The patient's has eggnog, which is the patient's favorite drink and treat that she plans on bringing later to the facility. This SHIP SCALER encouraged the to continue to bring this as will bring pleasure to the patient and ultimately wish to optimize his quality of life. Impression and Recommendations - Palliative Care Impression: This is an 79-year-old gentleman with advanced Parkinson's disease, Parkinson's is 30 she had dementia, questionable Lewy body dementia F AST 7C who is recovering from coronavirus. His blood glucose levels have been slightly elevated during his course of coronavirus but remains below 300. Palliative care to continue to provide a symptom management, care coordination, and anticipatory guidance.. Recommendations/Counseling Done: 1. Canales virus positive without respiratory symptoms. Initial diagnosis on 01/26/2020. Staff continuing to monitor closely with support by facility medical physics teacher Dr. Rios. Supportive medications available if symptoms develop. Patient appears to have overall returned to his baseline. 2.Diabetes mellitus type 2. Patient has a history of seizure activity due to symptomatic hypoglycemia that occurred in the spring 2019. Lantus dose 14 units presently adjusted 10/21/2019. Patient's blood glucose levels have been slightly above his baseline with recent development of coronavirus likely contributing however, his fasting blood glucose levels remain in a reasonable range below 300. Will not make adjustments to his Lantus dosage at this time. Patient is asymptomatic. Given the patient's advanced age and comorbidities a goal hemoglobin A1c is 7 to 8%. Continue to monitor blood glucose trends and adjust as needed. 3. Parkinson's disease. Diagnosed over 20 years ago. DBS placed in 2011. Chronic. Progressive. Continue to provide support for the patient's with supportive listening. Continue to be followed by [facility] neurology. Continue Sinemet as ordered. 4. 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 Progressive. Supportive care. Fall precautions. No behavioral concerns reported by staff. On no disease modifying agents. Continue Seroquel 50 mg nightly for agitation that is presently controlled. Given the patient's advanced age, dementia and chronic comorbidities a gradual decline is expected. Time Spent: [facility] [id number] Contacted patient's /ISABELLDiana via phone at [phone] updating regarding clinical findings, provided supportive listening, with questions answered and addressed. Disclaimer: The chart note was formulated using voice recognition technology and unfortunately sound alike errors may occur. Telehealth Visit - TeleMedicine Visit Referring Provider: Dr. Víctor Begum Visit Type:: TeleHealth Video Call Patient agrees and consents to this telehealth visit type: Yes Patient agrees to have their insurance billed: Yes Time spent:: Initiated 1030 Video type:: Harmony Participants:: Other (facility RNTammy) Location of provider:: Office Location of patient:: Assisted Living Provider Statement: I spent 100% on the TeleHealth Video Call with the patient with greater than 50% spent counseling the patient and coordination of care.
== END 2020-02-16 10:31 | disposition home or self-care (01) ==
LOC: PC 10:30
PROVIDERS: ATTEND Nurse Practitioner Family
DX: Z51.5 Encounter for palliative care (principal); U07.1 COVID-19; E11.9 Type 2 diabetes mellitus without complications; G20 Parkinson's disease; F02.80 Dementia in other diseases classified elsewhere, unspecified severity, without behavioral disturbance, psychotic disturbance, mood disturbance, and anxiety; K59.00 Constipation, unspecified; Z79.4 Long term (current) use of insulin; Z66 Do not resuscitate

== ENCOUNTER 2020-04-10 13:55 | Outpatient (CLI) | payer MEDICARE, OTHER ==
--- NOTE | 2020-04-10 16:10 | CONSULTATION NOTE ---
Palliative Care Follow Up - Referral Referring Provider: Dr. Víctor Begum Time of Visit: Initiated 1355 Referral setting: Assisted living Referral Reason: Type II DM/Parkinson's Disease/Dementia - Information Sources Records reviewed: Previous records reviewed History/Review of Systems obtained from: Caregiver, Nursing Exam limitations: Clinical condition (Advanced dementia) - History of Present Illness Update Brief HPI Update: This is an 79-year-old gentleman who was seen in follow-up today at [facility] For follow-up related to his advanced Parkinson's disease, dementia and diabetes mellitus type 2. Please see dictated HPI from July 07, 2019 for full details. The patient has a history of diabetes mellitus type 2 and is on Lantus 14 units nightly. Early in spring 2019 he experienced several episodes of hypoglycemia resulting in seizure activity. He was seen in the emergency department on 2019 due to hypoglycemia. Recently there is an increasing trend of the patient's blood glucose levels Slightly more elevated in the evenings prior to his Lantus had the followin, 357, 273, 272, 311, 271, 300. His fasting blood glucose trends have been as follows 218, 256, 156, 225, 185, 162, 119, 128. The patient's brings him in cookies which she strongly enjoys. Staff also report that he has a very hearty appetite and is 121 with meals and does very well with meal consumption. The patient has a longstanding history of constipation and his continues to bring in yogurt that is administered by the facility staff. He continues to have a bowel regimen with senna and MiraLAX standing to optimize his bowel function. Staff denying any acute behavioral concerns and no recent falls. The patient is seen resting in bed holding his soft foot book. He is arousable and no evidence of acute distress. Past Medical History: Patient has a past medical history of advanced Parkinson's disease status post deep brain stimulation surgery 2011, Parkinson's associated dementia, questionable Lewy body dementia, diabetes mellitus type 2, BPH, history of fa lls, coronavirus 01/2020. Social History - Living Situation Living arrangement: Assisted living Support System: Patient resides at [facility] unit where he relocated to in December 2018. Previously he was receiving caregiving within his home from his , Diana. The patient and his have been for 59 years. The patient was an extremely active individual and was always on the go. It has been a difficult transition for the patient's spouse, Diana due to the restrictions of coronavirus limiting her physical contact with the patient. Prior to coronavirus restrictions developing in May 2019 she visited the patient at the facility on a daily basis and provided assistance during mealtimes and activities. Medications/Allergies - Medications Home Medications: Ambulatory Orders Medication Instructions Recorded Confirmed Carbidopa/Levodopa [Carbidopa-Levo 1.5 tab PO Q3HR 09/18/18 02/16/20 ER 25-100 Tab] Cyanocobalamin (Vitamin B-12) 1,000 mcg PO DAILY 09/18/18 02/16/20 [Vitamin B-12] Finasteride 5 mg PO DAILY 09/18/18 02/16/20 Insulin Glargine [Lantus Solostar] 14 units SUBQ DAILY PM 09/18/18 02/16/20 Quetiapine Fumarate 50 mg PO QPM 09/18/18 02/16/20 Tamsulosin HCl [Flomax] 0.4 mg PO DAILY 09/18/18 02/16/20 Ipratropium [place] 1 spray NS AC 06/14/19 02/16/20 Senna [Senokot] 2 tab PO QPM MDD hold for loose 06/14/19 02/16/20 stools Acetaminophen 500 mg PO Q4H PRN 07/07/19 02/16/20 Senna [Senokot] 8.6 mg PO BID PRN 07/07/19 02/16/20 polyethylene glycoL 3350 [Miralax] 17 g PO DAILY MDD hold for loose 08/24/19 02/16/20 stools Morphine Sulfate [Morphine Sulf 5 mg PO Q2H PRN 02/16/20 02/16/20 Oral (Roxanol)] - Allergies Allergies/Adverse Reactions: Allergies Allergy/AdvReac Type Severity Reaction Status Date / Time No Known Drug Allergies Allergy Verified 02/16/20 11:58 Review of Systems - Constitutional Constitutional: reports: Weight gain (145.2lb 04/07/2020; 143.4lb 02/15/2020; 167lb 08/23/2019). denies: Fever - Eyes Eyes: denies: Irritation - Ears, Nose & Throat Ears, Nose & Throat: reports: Hearing loss, Hearing aids - Cardiovascular Cardiovascular: denies: Edema - Respiratory Respiratory: denies: Wheezing - Gastrointestinal Gastrointestinal: reports: Constipation (controlled; brings in yogurt), Good appetite (requires 1:1 meal assistance). denies: Vomiting - Genitourinary Genitourinary: reports: Incontinence. denies: Hematuria - Musculoskeletal Musculoskeletal: reports: Stiffness, Muscle weakness, Assistive devices, Transfer issues - Neurological Neurological: reports: General weakness, Memory problems - Psychiatric Psychiatric: denies: Behavior disturbances - Endocrine Endocrine: reports: Diabetes type 2 (see HPI for full details) - All Other Systems All Other Systems: reports: Reviewed and negative (Review of systems is limited as patient essentially has unintelligible speech. Review of systems supplemented by a facility RNTammy and RESEARCH LABORATORY MANAGERDorota.) Physical Exam - Vital Signs Temperature: 36.5 C Pulse Rate: 71 O2 Saturation: 98 (on RA) Blood Pressure: 132/72 (left wrist cuff) - Physical Exam General Appearance: positive: No acute distress, Alert, Other (resting in bed) Eyes Bilateral: positive: Normal inspection, No lid inflammation ENT: positive: No signs of dehydration, Other ( +hearing aids) Neck: positive: Trachea midline Cardiovascular: positive: Regular rate & rhythm, Systolic murmur (soft 2/6 ALEENA, established) Respiratory: positive: No respiratory distress, Breath sounds nml Abdomen: positive: Non-tender, Soft, Nml bowel sounds. negative: Guarding Skin: positive: No symptoms Extremities: positive: No pedal edema Neurologic/Psychiatric: positive: Disoriented to person, Disoriented to place, Disoriented to time, Unintelligible speech (mumbles), Other (+rigidity) Palliative Care - POLST Patient has POLST: Yes POLST Status: DNR, Selective Treatment Pain: No pain Anorexia: None Sleep: Sleeps well Constipation: Managed Performance Status: Prior to the patient moving into [facility] in December 2018 he was a 1 person assist with a gait belt. He is no longer ambulatory and requires a tilt in space wheelchair. He is a two-person transfer. He is incontinent of bowel and bladder. He requires one-to-one assistance with meals. FAS T7 C - Palliative Care Discussion: The patient has demonstrated some elevations of his blood glucose levels in the evenings prior to his Lantus administration. There have been no episodes of hypoglycemia. He would benefit from having notifications altered regarding parameters if less than 60 or greater than 350 moving forward. No evidence of hypoglycemia which has been a problem in the past that had resulted in seizure activity. The patient appears to be quite comfortable and in has had an increase in his weight recently but overall a downward trend since his weight in August 2019. Impression and Recommendations - Palliative Care Impression: This is an 79-year-old gentleman with a history advanced Parkinson's disease, Parkinson's associated dementia, questionable Lewy body dementia and diabetes mellitus type 2. In early 2019 the patient had episodes of hypoglycemia requiring adjustment of his Lantus dosage. He presently has had an upward trend of his blood glucose levels in the evening likely due to his favorite snacks being offered, but this can be monitored weighing benefits versus burdens in regards to the patient's quality of life. Palliative care to continue to provide symptom management, care coordination and anticipatory guidance. Recommendations/Counseling Done: 1. Diabetes mellitus type 2 with history of hypoglycemia. Patient has had a history of seizure activity due to symptomatic hypoglycemia that occurred in the Spring 2019. No repeated episodes. Presently on Lantus 14 units nightly. Patient has been displaying evidence of increased blood glucose levels in the evening and to control blood glucose levels fasting. Request that facility send blood glucose log in 2 weeks for review and consider switching Lantus dosage to the a.m. and monitor response. Given the patient's advanced age and comorbidities of goal hemoglobin A1c is 7 to 8%. Continue to monitor. 2. Failure to thrive. Patient has had a gradual weight loss trend since August 2019 with recent increase in weight to 145.2 pounds. He requires one-to-one assistance during mealtime. No evidence of dysphagia reported by staff. Given the patient's advanced chronic illnesses and disease progression it is expected to note gradual weight loss. Continue to monitor weekly weight trends. 3. Parkinson's disease. Diagnosed over 20 years ago. DBS placed 2011. Chronic. Progressive. Continue to provide support for the patient's regarding caregiver burden. Followed by the [facility] neurology. Continue carbidopa/levodopa as ordered by neurology. 4. 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 Chronic. Progressive. Supportive care. Fall precautions. No behavioral concerns reported by staff. On no disease modifying agents. Continue quetiapine 50 mg nightly for agitation. If behaviors continues to be controlled consider dose reduction at next evaluation of quetiapine. Given the patient's advanced age, dementia and chronic comorbidities a gradual decline is expected. CPT 13436 Care coordination performed with nursing staff with questions answered and addressed. Contacted the patient's , Diana at [phone] to review plan of care and address any questions or concerns with voicemail left and awaiting return call back. Disclaimer: The chart note was formulated using voice recognition technology and unfortunately sound alike errors may occur.
== END 2020-04-10 13:56 | disposition home or self-care (01) ==
LOC: PC 13:55
PROVIDERS: ATTEND Nurse Practitioner Family
DX: Z51.5 Encounter for palliative care (principal); E11.9 Type 2 diabetes mellitus without complications; R62.7 Adult failure to thrive; G20 Parkinson's disease; F02.80 Dementia in other diseases classified elsewhere, unspecified severity, without behavioral disturbance, psychotic disturbance, mood disturbance, and anxiety; Z79.899 Other long term (current) drug therapy; Z66 Do not resuscitate

== ENCOUNTER 2020-06-01 12:44 | Outpatient (CLI) | payer MEDICARE, OTHER ==
--- NOTE | 2020-06-01 17:56 | CONSULTATION NOTE ---
Palliative Care Follow Up - Referral Referring Provider: JANES Beard Time of Visit: Initiated 1244 Referral setting: Assisted living Referral Reason: Constipation/Parkinson's Disease/Dementia/Type II DM - Information Sources Records reviewed: Previous records reviewed History/Review of Systems obtained from: Family (/Diana WHYTE present), Caregiver, Nursing Exam limitations: Clinical condition - History of Present Illness Update Brief HPI Update: This is an 79-year-old gentleman who was seen in follow-up today at [facility] [place], [place] regarding advanced Parkinson's disease, dementia, diabetes mellitus type 2 and constipation with his /DPDiana OROPEZA present. The patient is a longstanding history of constipation. His provides yogurt that is administered by the facility staff. He has had improvement of his bowel regulation with typically defecating every day to 3 days on average. He continues on routine senna and miralax. The patient has a history of diabetes mellitus type 2 and is on Lantus. Earlier in the spring he experienced several episodes of hypoglycemia resulting in seizure activity. He was seen in the emergency department on 06/13 due to hypoglycemia. He is presently on Lantus 16 units nightly. Upon review of blood glucose levels he is having increased lows below 100 in the mornings. He has not demonstrated any s/s of hypoglycemia. He lowest blood glucose level was 56 reported in the AM on 05/26/2020. His weight is holding stable at 144lbs. He continues to receive Glucerna supplementation to maintain his weight. Prior to COVID-19 his was coming to assist routinely with meals. She is now visiting once a week, as permissible, and has been assisting the patient with his lunch today. He does not have any evidence of dysphagia during meals and no noted coughing. He has a DBS in place and the is unsure as to when the battery was last checked. She has the device to check the battery at home and is going to look into it further. It has been some time since the patient has been seen and evaluated by his neurologist as it is a taxing effort for him to leave the facility. Today the patient is seen in his tilt in space wheelchair at the dining table finishing up lunch that he was assisted consuming by his /ISABELL. He has consumed nearly 100% of his meal. He has a sandfilled doll that he squeezes and is extremely talkative today with short, formed sentences that do not match context. Past Medical History: Patient has a past medical history of advanced Parkinson's disease status post deep brain stimulation surgery in 2011(two battery changes May 2015 and March [address] Jose Egan), Parkinson's associated dementia, questionable Lewy body dementia, diabetes mellitus type 2, BPH, history of falls. Social History - Living Situation Living arrangement: Assisted living Support System: The patient resides at [facility] where he moved into in December 2018. Prior to his transition to [facility] he was receiving caregiving at home from his . He and his have been for 59 years. The patient was an extremely active in individual and was always on the go. His is now able to come once a week for visits inside the facility due to COVID-19 restrictions. She prefers to come during meal times to provide assistance and have interaction with the patient. Medications/Allergies - Medications Home Medications: Ambulatory Orders Medication Instructions Recorded Confirmed Carbidopa/Levodopa [Carbidopa-Levo 1.5 tab PO Q3HR 09/18/18 06/01/20 ER 25-100 Tab] Cyanocobalamin (Vitamin B-12) 1,000 mcg PO DAILY 09/18/18 06/01/20 [Vitamin B-12] Finasteride 5 mg PO DAILY 09/18/18 06/01/20 Insulin Glargine [Lantus Solostar] 16 units SUBQ DAILY PM 09/18/18 06/01/20 Quetiapine Fumarate 50 mg PO QPM 09/18/18 06/01/20 Tamsulosin HCl [Flomax] 0.4 mg PO DAILY 09/18/18 06/01/20 Ipratropium [place] 1 spray NS .TIDAC 06/14/19 06/01/20 Senna [Senokot] 2 tab PO QPM MDD hold for loose 06/14/19 06/01/20 stools Acetaminophen 500 mg PO Q4H PRN 07/07/19 06/01/20 Senna [Senokot] 8.6 mg PO BID PRN 07/07/19 06/01/20 polyethylene glycoL 3350 [Miralax] 17 g PO DAILY MDD hold for loose 08/24/19 06/01/20 stools Vitamin D 2,000 unit PO DAILY 04/10/20 06/01/20 - Allergies Allergies/Adverse Reactions: Allergies Allergy/AdvReac Type Severity Reaction Status Date / Time No Known Drug Allergies Allergy Verified 06/01/20 18:03 Review of Systems - Constitutional Constitutional: reports: Other (weight 144lbs 05/26/2020; 145.2lb 04/07/2020; 143. 4lb 02/15/2020; 167lb 08/23/2019). denies: Fever, Poor appetite - Eyes Eyes: reports: Corrective lenses - Ears, Nose & Throat Ears, Nose & Throat: reports: Hearing loss, Hearing aids, Other (history of excess cerumen in ears) - Cardiovascular Cardiovascular: denies: Edema - Respiratory Respiratory: denies: Cough - Gastrointestinal Gastrointestinal: reports: Constipation (controlled, see HPI, longstanding), Good appetite (requires 1:1 meal assistance). denies: Abdominal pain, Vomiting - Genitourinary Genitourinary: reports: Incontinence. denies: Hematuria - Musculoskeletal Musculoskeletal: reports: Stiffness, Muscle weakness, Assistive devices, Transfer issues - Integumentary Integumentary: denies: Rash - Neurological Neurological: reports: General weakness, Memory problems - Psychiatric Psychiatric: denies: Hallucinations - Endocrine Endocrine: reports: Diabetes type 2 (see HPI for full details) - Hematologic/Lymphatic Hematologic/Lymph: denies: Recurrent infections - All Other Systems All Other Systems: reports: Reviewed and negative (Review of systems is limited as patient is a poor historian due to dementia. Review of systems supplemented by a facility SURVEYOR HELPERDorota and , Diana.) Physical Exam - Vital Signs Temperature: 36.2 C Pulse Rate: 67 Blood Pressure: 118/60 (left arm) - Physical Exam General Appearance: positive: No acute distress, Alert, Other (frail, elderly man OOB in tilt in space wheelchair) Eyes Bilateral: positive: Normal inspection, Other (+corrective lenses) ENT: positive: No signs of dehydration, Other ( +hearing aids) Neck: positive: Trachea midline Cardiovascular: positive: Regular rate & rhythm, Systolic murmur (soft 2/6 ALEENA, established) Respiratory: positive: No respiratory distress, Breath sounds nml. 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 He has been asymptomatic during these periods of hypoglycemia. No reported seizure activity which has been the case previously. The patient has a DBS implantation and the patient's wishes to follow-up regarding the battery life as she does not wish to proceed with having the battery changed in the future. She perceives that having the battery changed would be distressing and fatiguing for the patient as he has advanced in his Parkinson's disease and Parkinson's associated dementia. If needed in the future she would prefer to have the device shut off if the battery were to run out. Impression and Recommendations - Palliative Care Impression: This is an 80-year-old gentleman with a history advanced Parkinson's disease, Parkinson's associated dementia, questionable Lewy body dementia, constipation and diabetes mellitus type 2. He is having noted asymptomatic episodes of hypoglycemia intermittently in the morning and would benefit from a evening snack to stabilize his blood glucose levels overnight. His weight continues to be hovering about on 144 pounds. Palliative care to continue to revise symptom management, care coordination and anticipatory guidance. Recommendations/Counseling Done: 1. Diabetes mellitus type 2 with history of hypoglycemia. Patient has had history of seizure activity due to symptomatic hypoglycemia that occurred in spring 2019. Noted to have increasing lows in the morning. Introduce evening snack to stabilize the patient's blood glucose level overnight. Request that patient's blood glucose trends be faxed to this DECORATING CONSULTANT in 2 weeks to reevaluate if his Lantus dosage needs to be adjusted. At the present time, continue Lantus 16 units nightly. No evidence that he is symptomatic due to his recent documented episodes of hypoglycemia. May consider switching the patient's Lantus dosage to the a.m. Given the patient's advanced age and chronic co morbidities a goal hemoglobin A1c of 7 to 8% is appropriate. Continue to monitor. 2. History of DBS. Patient had DBS implantation in 2011. He has had the battery replaced on 2 separate occasions with the last being performed in 2018. The patient's has the battery monitor device at her home and wishes to evaluate the length of time left on the battery. She does not perceive that she would have the patient move forward with having a battery replacement due to the advancement of his underlying dementia and Parkinson's disease. /DPOA will coordinate either with myself or the patient's PCP on site for evaluation of the battery length in the DBS. 3. Failure to thrive. Patient has had a gradual weight loss trend since August 2019 with recent stabilization of his weight at 144 pounds. He requires one-to-one assistance during mealtime. No evidence of dysphagia reported by staff or patient's . The patient would likely benefit from increased mealtimes with his visiting the facility however, due to Covid19 restrictions she is only to visit once a week. Given the patient's advanced chronic illnesses and disease progression a gradual weight loss is expected. Continue to monitor weekly weight trends. 4. Constipation. Sedentary lifestyle contributing. Longstanding history. Presently controlled. Continue MiraLAX 17 g by mouth daily and hold for loose stools. Continue senna 2 tablets at bedtime. 5. Parkinson's disease. Diagnosed over 20 years ago. DBS placed 2011. Chronic. Progressive. Continue to provide a support to the patient's . Has been followed by [facility] neurology. Continue carbidopa/levodopa as ordered by neurology. 6. 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 Chronic. Progressive. Supportive care. Fall precautions. No behavioral concerns reported by staff. On no disease modifying agents. No hallucinations reported by facility staff. Continue quetiapine 50 mg nightly. Given the patient's advanced age, dementia and chronic morbidities a gradual decline is expected. CPT 93028 Reviewed plan of care with facility Dorota WILLS. Reviewed plan of care at length with patient's /DPOA Diana on site with questions answered and addressed. We will coordinate with the patient's /DPOA either with myself or the patient's PCP to evaluate the battery life remaining on the patient's DBS. On next evaluation will also provide cerumen removal if needed at the patient's request. Disclaimer: The chart note was formulated using voice recognition technology and unfortunately sound alike errors may occur.
== END 2020-06-01 12:45 | disposition home or self-care (01) ==
LOC: PC 12:44
PROVIDERS: ATTEND Nurse Practitioner Family
DX: Z51.5 Encounter for palliative care (principal); E11.9 Type 2 diabetes mellitus without complications; R62.7 Adult failure to thrive; K59.00 Constipation, unspecified; G20 Parkinson's disease; F02.80 Dementia in other diseases classified elsewhere, unspecified severity, without behavioral disturbance, psychotic disturbance, mood disturbance, and anxiety; Z79.4 Long term (current) use of insulin; Z66 Do not resuscitate

== ENCOUNTER 2020-07-07 10:00 | Outpatient (CLI) | payer MEDICARE, OTHER ==
--- NOTE | 2020-07-07 13:56 | CONSULTATION NOTE ---
Palliative Care Follow Up - Referral Referring Provider: JANES Beard Time of Visit: Initaited 1000 Referral setting: Assisted living Referral Reason: Constipation/Type II DM/Dementia - Information Sources Records reviewed: Previous records reviewed History/Review of Systems obtained from: Nursing (JOHANN Raya) Exam limitations: Clinical condition (Advanced Dementia) - History of Present Illness Update Brief HPI Update: This is an 79-year-old gentleman who was seen in follow-up today at [facility] regarding dementia, diabetes mellitus type 2 and constipation at the request of Dorota WILLS. The patient has a history of insulin-dependent diabetes mellitus. His Lantus dose was recently increased to 18 units in 06/26 to be injected in the morning and to hold if his blood glucose is less than 150 mg/dL. The patient experienced in early spring 2019 several episodes of hypoglycemia resulting in seizure activity. He was seen in the emergency department on 06/14/2019 due to hypoglycemia. His appetite has greatly improved and he is typically consuming approximately 100% of his meals. Upon review of blood glucose levels if he is below 150 mg/dL in the morning then his Lantus is held and typically his blood glucose levels are in the 200s in the evening. Would benefit from adjustment of his hold parameters of his Lantus for more effective control. The patient is also having increased reports of constipation. Last reported bowel movement that was recorded was on 07/01. The patient does have a history of constipation and is presently on senna 2 tablets in the evening, MiraLAX 17 g daily, and has as needed senna to be administered. JOHANN Raya reports that as needed senna has been administered with out noted effect and requesting additional support. The patient is seen in his tilt in space wheelchair in the [facility] area initially napping easily arousable, no evidence of acute distress. He is forming short, form sentences that do not match context. Past Medical History: Patient has a past medical history of advanced Parkinson's disease status post deep brain stimulation surgery in 2011(two battery changes May 2015 and March [address] Jose Egan), Parkinson's associated dementia, questionable Lewy body dementia, diabetes mellitus type 2, BPH, history of falls. Social History - Living Situation Living arrangement: Assisted living Support System: The patient resides at [facility] where he moved into in December 2018. Prior to his transition to [facility] he was receiving caregiving at home from his . He and his have been for 59 years. The patient was an extremely active in individual and was always on the go. Medications/Allergies - Medications Home Medications: Ambulatory Orders Medication Instructions Recorded Confirmed Carbidopa/Levodopa [Carbidopa-Levo 1.5 tab PO Q3HR 09/18/18 06/01/20 ER 25-100 Tab] Cyanocobalamin (Vitamin B-12) 1,000 mcg PO DAILY 09/18/18 06/01/20 [Vitamin B-12] Finasteride 5 mg PO DAILY 09/18/18 06/01/20 Insulin Glargine [Lantus Solostar] 16 units SUBQ DAILY PM 09/18/18 06/01/20 Quetiapine Fumarate 50 mg PO QPM 09/18/18 06/01/20 Tamsulosin HCl [Flomax] 0.4 mg PO DAILY 09/18/18 06/01/20 Ipratropium [place] 1 spray NS .TIDAC 06/14/19 06/01/20 Senna [Senokot] 2 tab PO QPM MDD hold for loose 06/14/19 06/01/20 stools Acetaminophen 500 mg PO Q4H PRN 07/07/19 06/01/20 Senna [Senokot] 8.6 mg PO BID PRN 07/07/19 06/01/20 polyethylene glycoL 3350 [Miralax] 17 g PO DAILY MDD hold for loose 08/24/19 06/01/20 stools Vitamin D 2,000 unit PO DAILY 04/10/20 06/01/20 Senna [Senokot] 8.6 mg PO DAILY 07/07/20 07/07/20 - Allergies Allergies/Adverse Reactions: Allergies Allergy/AdvReac Type Severity Reaction Status Date / Time No Known Drug Allergies Allergy Verified 07/07/20 14:01 Review of Systems - Constitutional Constitutional: denies: Fever, Poor appetite - Eyes Eyes: reports: Corrective lenses - Ears, Nose & Throat Ears, Nose & Throat: reports: Hearing loss, Hearing aids - Cardiovascular Cardiovascular: denies: Edema - Respiratory Respiratory: denies: Wheezing - Gastrointestinal Gastrointestinal: reports: Constipation ( longstanding history), Good appetite (requires 1:1 meal assistance, consumes 100% of meals). denies: Abdominal pain, Vomiting - Genitourinary Genitourinary: reports: Incontinence. denies: Hematuria - Musculoskeletal Musculoskeletal: reports: Stiffness, Muscle weakness, Assistive devices, Transfer issues - Neurological Neurological: reports: General weakness, Memory problems - Endocrine Endocrine: reports: Diabetes type 2 (see HPI for full details) - All Other Systems All Other Systems: reports: Reviewed and negative (Review of systems is limited as patient is a poor historian due to dementia. Review of systems supplemented by a facility Dorota WILLS.) Physical Exam - Vital Signs Temperature: 36.1 C Pulse Rate: 72 Blood Pressure: 120/72 (left arm) - Physical Exam General Appearance: positive: No acute distress, Alert, Other (frail, elderly man OOB in tilt in space wheelchair) Eyes Bilateral: positive: Normal inspection, Other (+corrective lenses) ENT: positive: No signs of dehydration, Other ( +hearing aids) Neck: positive: Trachea midline Cardiovascular: positive: Regular rate & rhythm, Systolic murmur (soft 2/6 ALEENA, established) Respiratory: positive: No respiratory distress, Breath sounds nml Abdomen: positive: Non-tender, Soft, Nml bowel sounds. 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 Millicent benefit for titration of bowel regimen to reduce frequency of constipation and treat acute constipation presently. Impression and Recommendations - Palliative Care Impression: This is an 80-year-old gentleman with history of advanced Parkinson's disease, dementia, constipation and diabetes mellitus type 2. He would benefit from parameter adjustments of his Lantus from 150 mg/dL to 120 mg/dL for more adequate coverage and also to prevent hypoglycemia. The patient is experiencing constipation as noted by bowel protocol and would benefit from further adjustment of his bowel regimen and acute treatment of constipation today. Palliative care to continue to provide symptom management, care coordination and anticipatory guidance. Recommendations/Counseling Done: 1. Constipation. Sedentary lifestyle contributing. Longstanding history. Given last reported bowel movement 07/01 recommend administration of milk of magnesia 400 mg per 5 mL give 30ml p.o. x1 now for constipation. If the patient does not have a bowel movement by 8 AM on 07/08/2020 then advised to administer bisacodyl 10 mg suppository rectally x1. 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 Given patient's increased frequency of constipation will add senna 8.6 mg 1 tablet by mouth in the morning. Continue senna 2 tablets in the evening. Continue MiraLAX 17 g daily. Initiate milk of magnesia 400 mg per 5 mL give 30 mL p.o. daily if no bowel movement after 3 days as needed for constipation. Continue to monitor. 2.Mellitus type II with history of hypoglycemia. Patient has had history of seizure activity due to symptomatic hypoglycemia that occurred in spring 2019. Has noted increased blood glucose levels in the evening due to his a.m. Lantus dose being held. Recommend transitioning to Lantus 18 units injected subcutaneously for diabetes mellitus in the morning and hold if blood glucose level is less than 120 mg/dL. Request that blood glucose log be faxed to [facility] for review in 2 weeks and will determine if any further adjustments need to be made at that time. Given the patient's advanced age and chronic comorbidities a goal hemoglobin A1c of 7 to 8% is appropriate. Continue to monitor. 3. 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 Chronic. Progressive. Supportive care. Fall precautions. No behavioral concerns reported by staff. On no disease modifying agents. No hallucinations by facility staff members. Continue quetiapine 50 mg nightly. Given the patient's advanced age, dementia and chronic opiate use gradual Abarca's expected. CPT 21608 Review plan of care with facility Dorota WILLS with understanding verbalized. Contacted patient's PCP with update. Disclaimer: The chart note was formulated using voice recognition technology and unfortunately sound alike errors may occur.
== END 2020-07-07 10:01 | disposition home or self-care (01) ==
LOC: PC 10:00
PROVIDERS: ATTEND Nurse Practitioner Family
DX: Z51.5 Encounter for palliative care (principal); Z66 Do not resuscitate; K59.00 Constipation, unspecified; E11.9 Type 2 diabetes mellitus without complications; G20 Parkinson's disease; F02.81 Dementia in other diseases classified elsewhere, unspecified severity, with behavioral disturbance; Z79.4 Long term (current) use of insulin

== ENCOUNTER 2020-07-18 | Outpatient (CLI) | payer MEDICARE, OTHER ==
--- NOTE | 2020-07-18 16:06 | CONSULTATION NOTE ---
Palliative Care Follow Up - Referral Referring Provider: JANES Beard Time of Visit: Initiated 1420 Referral setting: Assisted living Referral Reason: Evaluation of right great toe and right index finger/Constipation/DM II - Information Sources Records reviewed: Previous records reviewed History/Review of Systems obtained from: Family (/ISABELL, Diana), Nursing (JOHANN Raya) Exam limitations: Clinical condition (Advanced Dementia) - History of Present Illness Update Brief HPI Update: This is an 80-year-old gentleman who was seen in evaluation today for swelling to his left index finger, absent right great toenail, diabetes mellitus type 2 and constipation in the setting of Parkinson's dementia at [facility]. When the patient was evaluated earlier this month he was having increased constipation and he was initiated on milk of magnesia as needed to be utilized if he has not had a bowel movement in 3 days. His senna dosage was adjusted and it was added to be 1 tablet of 8.6 mg in the morning. Upon review of bowel movement log the patient has typically been defecating on a daily basis since this adjustment to positive effect. He also has a history of insulin-dependent diabetes mellitus. On last evaluation his Lantus just was changed to the morning versus the evening due to noted highs of his blood glucose levels. He was also requested that his Lantus of 18 units not be administered if his blood glucose level is less than 120. Noted improvement of the patient's blood glucose levels in the morning and the evening with reduction of his blood glucose levels in the evening of greater than 300 upon review. Last week, the patient was having nail care performed at the facility by the onsite road gang supervisor and his right great toenail came off. This also occurred in April per JOHANN Raya's report. Recommended application of Betadine to be applied to the right great toe x7 days for antimicrobial properties which is being applied in the evening. There has been no evidence of discharge, localized redness or tenderness at the nail bed or surrounding tissue. Yesterday, it was noted that the patient had increased swelling to his left index finger and some bruising. No reported injury per staff. 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 He was initiated on routine ice application 3 times daily for 20 minutes further 3 days. Per JOHANN Raya the swelling has greatly reduced with the application of ice however, the bruising has spread more to the dorsal aspect of the patient's right hand and along his knuckles. The patient has not been displaying any signs or symptoms of discomfort with use of his right hand and with movement such as facial grimacing. The patient was seen at the dentist this afternoon with a diagnosis of gingivitis with recommendations to use an electric toothbrush and swish and spit with mouthwash. Patient is seen out of bed in his tilt in space wheelchair in the common area twisting a blanket with his hands with no evidence of acute distress. Past Medical History: Patient has a past medical history of advanced Parkinson's disease status post deep brain stimulation surgery in 2011(two battery changes May 2015 and March [address] Jose Egan), Parkinson's associated dementia, questionable Lewy body dementia, diabetes mellitus type 2, BPH, history of falls. Social History - Living Situation Living arrangement: Assisted living Support System: The patient resides at [facility] where he moved into in December 2018. Prior to his transition to [facility] he was receiving caregiving at home from his . He and his have been for 59 years. The patient was an extremely active in individual and was always on the go. Medications/Allergies - Medications Home Medications: Ambulatory Orders Medication Instructions Recorded Confirmed Carbidopa/Levodopa [Carbidopa-Levo 1.5 tab PO Q3HR 09/18/18 07/18/20 ER 25-100 Tab] Cyanocobalamin (Vitamin B-12) 1,000 mcg PO DAILY 09/18/18 07/18/20 [Vitamin B-12] Finasteride 5 mg PO DAILY 09/18/18 07/18/20 Insulin Glargine [Lantus Solostar] 18 units SUBQ DAILY 09/18/18 07/18/20 Quetiapine Fumarate 50 mg PO QPM 09/18/18 07/18/20 Tamsulosin HCl [Flomax] 0.4 mg PO DAILY 09/18/18 07/18/20 Ipratropium [place] 1 spray NS .TIDAC 06/14/19 07/18/20 Senna [Senokot] 2 tab PO QPM MDD hold for loose 06/14/19 07/18/20 stools Acetaminophen 500 mg PO Q4H PRN 07/07/19 07/18/20 Senna [Senokot] 8.6 mg PO BID PRN 07/07/19 07/18/20 polyethylene glycoL 3350 [Miralax] 17 g PO DAILY MDD hold for loose 08/24/19 07/18/20 stools Vitamin D 2,000 unit PO DAILY 04/10/20 07/18/20 Magnesium Hydroxide [Milk of 30 ml PO DAILY PRN MDD no BM in 3 07/07/20 07/18/20 Magnesia] days Senna [Senokot] 8.6 mg PO DAILY 07/07/20 07/18/20 - Allergies Allergies/Adverse Reactions: Allergies Allergy/AdvReac Type Severity Reaction Status Date / Time No Known Drug Allergies Allergy Verified 07/07/20 14:01 Review of Systems - Constitutional Constitutional: reports: Weight loss (149.2lb 07/14/2020; 151.2lb 07/07/2020; 144lb 05/03/2020). denies: Fever, Poor appetite - Eyes Eyes: reports: Corrective lenses - Ears, Nose & Throat Ears, Nose & Throat: reports: Hearing loss, Hearing aids, Other (Gingivitis) - Cardiovascular Cardiovascular: denies: Edema - Respiratory Respiratory: denies: Cough - Gastrointestinal Gastrointestinal: reports: Constipation ( longstanding history, improved with senna adjustment), Good appetite (requires 1:1 meal assistance, consumes 100% of meals). denies: Abdominal pain, Vomiting - Genitourinary Genitourinary: reports: Incontinence. denies: Hematuria - Musculoskeletal Musculoskeletal: reports: Stiffness, Muscle weakness, Assistive devices, Transfer issues - Integumentary Integumentary: reports: Other (right greattoe nail absent) - Neurological Neurological: reports: General weakness, Memory problems - Psychiatric Psychiatric: denies: Aggitation - Endocrine Endocrine: reports: Diabetes type 2 (see HPI for full details) - Hematologic/Lymphatic Hematologic/Lymph: reports: Bruising (right index finger and along knucks and back fo hand) - All Other Systems All Other Systems: reports: Reviewed and negative (Review of systems is limited as patient is a poor historian due to dementia. Review of systems supplemented by a facility Dorota WILLS and /DPJOHNNA Ortiz.) Physical Exam - Vital Signs Temperature: 36.4 C Pulse Rate: 80 O2 Saturation: 98 (on RA) Blood Pressure: 130/78 (right arm) - Physical Exam General Appearance: positive: No acute distress, Alert, Other (frail, elderly man OOB in tilt in space wheelchair) Eyes Bilateral: positive: Other (+corrective lenses) ENT: positive: No signs of dehydration, Other ( +hearing aids; +gingivitis) Neck: positive: Trachea midline Cardiovascular: positive: Regular rate & rhythm, Systolic murmur (soft 2/6 ALEENA, established) Respiratory: positive: No respiratory distress, Breath sounds nml Abdomen: positive: Non-tender, Soft, Nml bowel sounds. negative: Distended Skin: positive: Bruising (right index finger, along MCP of 2nd and 3rd fingers on right hand spreading to dorsal aspect with trace swelling to right index finger that has full ROM and no facial grimacing), Other (Absent right great toe nail with no beefy red appearance to wound base, no discharge, edema or erythema surrounding the site) Extremities: positive: No pedal edema Neurologic/Psychiatric: positive: Disoriented to person, Disoriented to place, Disoriented to time, Other (Minimally verbal) Palliative Care - POLST Patient has POLST: Yes POLST Status: DNR, Selective Treatment Pain: No pain Constipation: Yes, Managed - Palliative Care Discussion: The patient is a longstanding history of constipation and has positively responded to dose adjustment to his bowel regimen to effectively defecate almost on a daily basis. He unfortunately, has lost his right great toenail there may be some underlying candidiasis that may weaken the ability of the nail to adhere strongly to the nailbed. We will continue Betadine application monitoring for signs and symptoms of infection. The patient has full range of motion of his left index finger. We will continue local treatment with ice/cool packs routinely for a total of 3 days. Unclear how the injury had been sustained. Impression and Recommendations - Palliative Care Impression: This is an 80-year-old gentleman with a history advanced Parkinson's disease, dementia, constipation, diabetes mellitus type 2 who has recently developed a contusion to his left index finger as well as the loss of his right great toenail. His constipation symptoms have of improved with adjustment of his bowel regiment to having routine defecation. His blood glucose levels have had a reduction in his readings being consistently above 300. Local care is being provided to both his left index finger as well as his right great toenail with no evidence of infection. Palliative care to continue provide support for symptom management, care coordination and anticipatory guidance. Recommendations/Counseling Done: 1. Absent right great toenail. Occurred after routine the nail care. Unclear if there is underlying candidiasis that may be preventing the right great toenail from adhering adequately to the nailbed as this is a second occurrence. No evidence of infection. Continue Betadine as ordered for drying purposes as well as antimicrobial effects as previously prescribed. Continue to monitor for signs and symptoms of infection has been requested by facility staff. Discussed with the patient's /DPOA length of time it takes for a nail to grow as well as setting expectations that this may continue to be a recurrence if nail care is not proceeded gently with understanding verbalized. 2. Contusion left index finger. 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 Continue application of ice/cool compress 3 times daily for a total of 3 days at 20 minutes at a time. Reduction in swelling. Continues to have full range of motion. Localized ecchymosis that will gradually resolve. Unclear how contusion occurred. 3. Constipation. Sedentary lifestyle contributing. Longstanding history. Continue senna 8.6 mg 1 tablet in the morning and 2 tablets in the evening. Continue MiraLAX 17 g daily. Has milk of magnesia as needed if no bowel movement after 3 days. Improvement with addition of senna in the morning. Continue to monitor bowel regimen and adjust as needed. 4. Gingivitis. Seen and evaluated by dentist today. To begin electric toothbrush. Recommendations for mouthwash with rinse and spit. Given the patient's advanced dementia and likely he will be able to follow commands and directions. Request that facility follow-up with dentist for additional recommendations and in the interim may apply mouthwash to head of toothbrush to provide gum and dental care. Follow-up with dentist as recommended. 5. Diabetes mellitus type 2 with history of hypoglycemia. Patient has had history of seizure activity due to symptomatic hypoglycemia that occurred in the spring 2019. Recently had increased blood glucose levels of in the 300s. Has transitioned well to Lantus 18 units injected subcutaneously in the morning and to hold if his blood glucose levels less than 120 mg/dL. Noted improvement of the patient's evening blood glucose levels. Given the patient's advanced age and chronic comorbidities a goal hemoglobin A1c of 7 to 8% is appropriate. Continue to monitor. CPT 20356 Plan of care reviewed with facility JOHANN Raya with understanding verbalized. Contacted the patient's spouse/DPOA, Diana at [phone] with update izzy chamberlain plan of care with questions answered and addressed. Diana also vocalized understanding regarding likely inability for the patient to participate in mouthwash for gingivitis as well as implications of the patient losing his right great toenail. Supportive listening provided. Disclaimer: The chart note was formulated using voice recognition technology and unfortunately sound alike errors may occur.
== END 2020-07-18 14:21 | disposition home or self-care (01) ==

== ENCOUNTER 2020-09-20 08:45 | Outpatient (CLI) | payer MEDICARE, OTHER ==
--- NOTE | 2020-09-20 16:55 | CONSULTATION NOTE ---
Palliative Care Follow Up - Referral Referring Provider: JANES Beard Time of Visit: Initiated 0845 Referral setting: Assisted living Referral Reason: Skin tear left garcia/Dementia - Information Sources Records reviewed: Previous records reviewed History/Review of Systems obtained from: Nursing (JOHANN Raya) Exam limitations: Clinical condition (Advanced Dementia) - History of Present Illness Update Brief HPI Update: This is an 80 year old old gentleman who was seen in evaluation today at [facility] due to Parkinson's dementia and wound to his left garcia. The patient was noted to have a skin tear to his left garcia on 09/04 with some scant amount of drainage. It was cleansed with wound kiln cleaner Cerner and OPTi foam was utilized for coverage. Initial measurements were 2 x 2 x 0.1 cm. Yesterday, MANAGER OF SALES reported that they were applying triple antibiotic ointment and covering with a daily dressing and there appeared to be yellow slough and therefore was transition to Xeroform yesterday afternoon to be applied to the wound bed. The patient has been afebrile. He is not complaining of any di scomfort to the location. Patient is seen sitting out of bed in his tilt in space wheelchair being assisted with breakfast. No evidence of acute distress. Past Medical History: Patient has a past medical history of advanced Parkinson's disease status post deep brain stimulation surgery in 2011(two battery changes May 2015 and March [address] Jose Egan), Parkinson's associated dementia, questionable Lewy body dementia, diabetes mellitus type 2, BPH, history of falls. Social History - Living Situation Living arrangement: Assisted living Support System: The patient resides at [facility] unit where he moved into in December 2018. Prior to his transition to [facility] he was receiving caregiving at home from his . He and his have been for 59 years. The patient was an extremely active in individual and was always on the go. Medications/Allergies - Medications Home Medications: Ambulatory Orders Medication Instructions Recorded Confirmed Carbidopa/Levodopa [Carbidopa-Levo 1.5 tab PO Q3HR 09/18/18 07/18/20 ER 25-100 Tab] Cyanocobalamin (Vitamin B-12) 1,000 mcg PO DAILY 09/18/18 07/18/20 [Vitamin B-12] Finasteride 5 mg PO DAILY 09/18/18 07/18/20 Insulin Glargine [Lantus Solostar] 18 units SUBQ DAILY 09/18/18 07/18/20 Quetiapine Fumarate 50 mg PO QPM 09/18/18 07/18/20 Tamsulosin HCl [Flomax] 0.4 mg PO DAILY 09/18/18 07/18/20 Ipratropium [place] 1 spray NS .TIDAC 06/14/19 07/18/20 Senna [Senokot] 2 tab PO QPM MDD hold for loose 06/14/19 07/18/20 stools Acetaminophen 500 mg PO Q4H PRN 07/07/19 07/18/20 Senna [Senokot] 8.6 mg PO BID PRN 07/07/19 07/18/20 polyethylene glycoL 3350 [Miralax] 17 g PO DAILY MDD hold for loose 08/24/19 07/18/20 stools Vitamin D 2,000 unit PO DAILY 04/10/20 07/18/20 Magnesium Hydroxide [Milk of 30 ml PO DAILY PRN MDD no BM in 3 07/07/20 07/18/20 Magnesia] days Senna [Senokot] 8.6 mg PO DAILY 07/07/20 07/18/20 - Allergies Allergies/Adverse Reactions: Allergies Allergy/AdvReac Type Severity Reaction Status Date / Time No Known Drug Allergies Allergy Verified 07/07/20 14:01 Review of Systems - Constitutional Constitutional: reports: Other (149.2lb 07/14/2020; 151.2lb 07/07/2020; 144lb 05/03/2020). denies: Fever, Poor appetite - Eyes Eyes: reports: Corrective lenses - Ears, Nose & Throat Ears, Nose & Throat: reports: Hearing loss, Hearing aids - Cardiovascular Cardiovascular: denies: Edema - Respiratory Respiratory: denies: Other (cough during meals) - Gastrointestinal Gastrointestinal: reports: Good appetite (requires 1:1 meal assistance, consumes 100% of meals) - Genitourinary Genitourinary: reports: Incontinence - Musculoskeletal Musculoskeletal: reports: Stiffness, Muscle weakness, Assistive devices, Transfer issues - Integumentary Integumentary: reports: Other (skin tear left garcia) - Neurological Neurological: reports: General weakness, Memory problems - Endocrine Endocrine: reports: Diabetes type 2 - All Other Systems All Other Systems: reports: Reviewed and negative (Review of systems is limited as patient is a poor historian due to dementia. Review of systems supplemented by a facility Dorota WILLS and caregivers.) Physical Exam - Vital Signs Temperature: 36.7 C Pulse Rate: 77 O2 Saturation: 92 (on RA) Blood Pressure: 142/60 (right wrist) - Physical Exam General Appearance: positive: No acute distress, Alert, Other (frail, elderly man OOB in tilt in space wheelchair) Eyes Bilateral: positive: Other (+corrective lenses) ENT: positive: No signs of dehydration, Other ( +hearing aids) Neck: positive: Trachea midline Cardiovascular: positive: Regular rate & rhythm, Systolic murmur (soft 2/6 ALEENA, established) Respiratory: positive: No respiratory distress, Breath sounds nml Abdomen: positive: Non-tender, Soft, Nml bowel sounds Skin: positive: Wound (Left garcia skin tear: 1cm x 2cm with yellow slough, periwound without maceration and minor erythema at periwound indicative of healing vs cellulitis and no surroudning erythema and no warmth to palpation.) Extremities: positive: No pedal edema Neurologic/Psychiatric: positive: Disoriented to person, Disoriented to place, Disoriented to time, Other (Minimally verbal) Palliative Care - POLST Patient has POLST: Yes POLST Status: DNR, Selective Treatment Pain: No pain - Palliative Care Discussion: Patient developed a skin tear to his left garcia earlier this month and has had localized skin care to the site by facility staff. Given the yellow slough noted to the wound bed base would benefit from routine Xeroform application for antimicrobial properties and healing. Will initiate application of Xeroform every 2 days and covered with border foam or if soiled. Request that facility staff monitor for signs and symptoms of infection. Impression and Recommendations - Palliative Care Impression: This is an 80-year-old gentleman with a history advanced Parkinson's disease, dementia, diabetes mellitus type 2 with a skin tear to his left garcia that was reported in early August 2020. He would benefit for treatment. Xeroform application to the wound bed until healed. Palliative care to continue provide support for symptom management, care coordination and anticipatory guidance. Recommendations/Counseling Done: 1. Skin tear to left garcia. Resolving. No evidence of cellulitis. To food site cleansed with normal saline, pat dry, cover open area with Xeroform and cover with bordered foam every 2 days or if needed if soiled until healed. Request the facility staff monitor for signs and symptoms of infection such as drainage, spreading redness, etc. and to notify PCP. 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 Chronic. Progressive. Supportive care. Fall precautions. Note is behavioral concerns reported by staff. On no disease modifying agents. Continue quetiapine 50 mg nightly. Given the patient's advanced age, dementia and chronic comorbidities a gradual decline is expected. CPT 95392 Plan of care reviewed with facility MANAGER OF SALESSyl Raya with understanding verbalized. Updated the patient's PCP, JANES Brewer regarding plan of care. Disclaimer: The chart note was formulated using voice recognition technology and unfortunately sound alike errors may occur.
== END 2020-09-20 08:46 | disposition home or self-care (01) ==
LOC: PC 08:45
PROVIDERS: ATTEND Nurse Practitioner Family
DX: Z51.5 Encounter for palliative care (principal); G20 Parkinson's disease; F02.81 Dementia in other diseases classified elsewhere, unspecified severity, with behavioral disturbance; S81.812A Laceration without foreign body, left lower leg, initial encounter; Z66 Do not resuscitate

== ENCOUNTER 2020-11-08 14:00 | Outpatient (CLI) | payer MEDICARE, OTHER ==
--- NOTE | 2020-11-08 16:31 | CONSULTATION NOTE ---
Palliative Care Follow Up - Referral Referring Provider: JANES Beard Time of Visit: Initiated 1400 Referral setting: Assisted living Referral Reason: Wound to Ankle/Dementia - Information Sources Records reviewed: Previous records reviewed History/Review of Systems obtained from: Caregiver, Nursing (JOHANN Leavitt) Exam limitations: Clinical condition (Advanced Dementia) - History of Present Illness Update Brief HPI Update: This is an 80-year-old gentleman who was seen in evaluation today at [facility] due to wound to his left lateral ankle and history of Parkinson's dementia. Noted on 11/03 that the patient had developed a wound to his left lateral ankle and localized wound care was provided per facility protocol. On 11/02 the patient demonstrated elevated blood glucose level at 390 and upon repeat 1 hour later was 364. He has an underlying history of diabetes mellitus managed with insulin therapy. Caregivers report that for the last 2 weeks the patient has had a overall reduction in his intake during breakfast with other meals consuming well. He requires cueing and assistance with meals due to his advanced Parkinson's disease and Parkinson's dementia. The patient is seen in his tilt in space wheelchair well groomed, in no evidence of acute distress. Past Medical History: Patient has a past medical history of advanced Parkinson's disease status post deep brain stimulation surgery in 2011(two battery changes May 2015 and March [address] Jose Egan), Parkinson's associated dementia, questionable Lewy body dementia, diabetes mellitus type 2, BPH, history of falls. Social History - Living Situation Living arrangement: Assisted living Support System: The patient resides at [facility] unit where he moved into in December 2018. Prior to his transition to [facility] he was receiving caregiving at home from his . He and his have been for 59 years. The patient was an extremely active in individual and was always on the go. Medications/Allergies - Medications Home Medications: Ambulatory Orders Medication Instructions Recorded Confirmed Carbidopa/Levodopa [Carbidopa-Levo 1.5 tab PO Q3HR 09/18/18 07/18/20 ER 25-100 Tab] Cyanocobalamin (Vitamin B-12) 1,000 mcg PO DAILY 09/18/18 07/18/20 [Vitamin B-12] Finasteride 5 mg PO DAILY 09/18/18 07/18/20 Insulin Glargine [Lantus Solostar] 18 units SUBQ DAILY 09/18/18 07/18/20 Quetiapine Fumarate 50 mg PO QPM 09/18/18 07/18/20 Tamsulosin HCl [Flomax] 0.4 mg PO DAILY 09/18/18 07/18/20 Ipratropium [place] 1 spray NS .TIDAC 06/14/19 07/18/20 Senna [Senokot] 2 tab PO QPM MDD hold for loose 06/14/19 07/18/20 stools Acetaminophen 500 mg PO Q4H PRN 07/07/19 07/18/20 Senna [Senokot] 8.6 mg PO BID PRN 07/07/19 07/18/20 polyethylene glycoL 3350 [Miralax] 17 g PO DAILY MDD hold for loose 08/24/19 07/18/20 stools Vitamin D 2,000 unit PO DAILY 04/10/20 07/18/20 Magnesium Hydroxide [Milk of 30 ml PO DAILY PRN MDD no BM in 3 07/07/20 07/18/20 Magnesia] days Senna [Senokot] 8.6 mg PO DAILY 07/07/20 07/18/20 - Allergies Allergies/Adverse Reactions: Allergies Allergy/AdvReac Type Severity Reaction Status Date / Time No Known Drug Allergies Allergy Verified 07/07/20 14:01 Review of Systems - Constitutional Constitutional: denies: Fever - Eyes Eyes: reports: Corrective lenses - Ears, Nose & Throat Ears, Nose & Throat: reports: Hearing loss, Hearing aids - Cardiovascular Cardiovascular: denies: Edema - Respiratory Respiratory: denies: Wheezing - Gastrointestinal Gastrointestinal: reports: Other (requires 1:1 meal assistance, slight decrease in consumption, see HPI) - Genitourinary Genitourinary: reports: Incontinence - Musculoskeletal Musculoskeletal: reports: Stiffness, Muscle weakness, Assistive devices, Transfer issues - Integumentary Integumentary: reports: Other (wound left ankle) - Neurological Neurological: reports: General weakness, Memory problems - Endocrine Endocrine: reports: Diabetes type 2 - Hematologic/Lymphatic Hematologic/Lymph: denies: Recurrent infections - All Other Systems All Other Systems: reports: Reviewed and negative (Review of systems is limited as patient is a poor historian due to dementia. Review of systems supplemented by a facility [facility] and caregivers.) Physical Exam - Vital Signs Temperature: 36.1 C Pulse Rate: 64 Blood Pressure: 123/62 (left wrist) - Physical Exam General Appearance: positive: No acute distress, Alert, Other (frail, elderly man OOB in tilt in space wheelchair) Eyes Bilateral: positive: Normal inspection ENT: positive: No signs of dehydration Neck: positive: Trachea midline Cardiovascular: positive: Regular rate & rhythm, Systolic murmur (soft 2/6 ALEENA, established) Respiratory: positive: No respiratory distress, Breath sounds nml Abdomen: positive: Non-tender, Soft, Nml bowel sounds Skin: positive: Wound (Left lateral ankle: central ulceration that isdry with darkened base with desimiated edges appx 0.5cm x 0.8cm surrounded by 3cm of erythema and warmth to touch c/w cellulitis) Extremities: positive: No pedal edema Neurologic/Psychiatric: positive: Disoriented to person, Disoriented to place, Disoriented to time, Other (Minimally verbal; +strong UE bar back) Palliative Care - POLST Patient has POLST: Yes POLST Status: DNR, Selective Treatment Pain: No pain - Palliative Care Discussion: Patient has developed a wound to his left lateral ankle that is likely multifactorial given his nonambulatory state and some underlying pressure as well as diabetes mellitus. Would benefit from localized breeding with Santyl to be applied to the wound base and due to underlying cellulitis will initiate doxycycline for a 14-day course given potential for her diabetic ulcer. Given the patient is in a facility and it is extremely taxing for him to leave will request that signature home health nursing provide assistance for wound care management. Impression and Recommendations - Palliative Care Impression: This is an 80-year-old gentleman with a history advanced Parkinson's disease, dementia, diabetes mellitus type 2 with a wound to his left lateral ankle with underlying cellulitis. He would benefit from localized skin care as well as support from home health nursing for wound care management. Request made for implementation of wound care orders and home health nursing. Palliative care to continue provide support for symptom management, care coordination and anticipatory guidance. Recommendations/Counseling Done: 1. Left lateral ankle wound. Multifactorial with underlying diabetes mellitus as well as pressure contributing. As it is extremely taxing for the patient to leave his home environment and the facility will request that signature home health nursing provide support for wound care management in the facility. Wound care orders; cleanse with normal saline, pat dry, apply Santyl to wound base at 2 mm thickness, cover with Adaptic oil emulsion and cover with bordered foam dressing every other day or as needed if soiled until healed. Monitor for s/s of new/worsening symptoms and make PCP aware. 2. Cellulitis to the left lateral ankle in the setting of a lateral ankle wound. Initiate doxycycline 100 mg twice daily x14 days for underlying cellulitis. Continue to monitor and provide support. 3. 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 Chronic. Progressive. Supportive care. Fall precautions. No behavioral disturbance reported by staff. On no disease modifying agents. Continue quetiapine as o rdered. Given the patient's advanced age, dementia and chronic comorbidities a gradual Abarca is expected. FACE To FACE: Patient is wheelchair-bound in his assisted living facility and it is extremely taxing and considerable effort to leave the facility. He requires home health nursing for management of a left lateral wound and management and healing. I recommend home health nursing for this patient. CPT 08180 Plan of care updated with facility [facility] as well as patient's PCP JANES Brewer with understanding verbalized and in agreement with plan of care. Contacted patient spouse/DPJOHNNA Ortiz at [phone] and voicemail left requesting return call to update regarding plan of care and awaiting return call. Disclaimer: The chart note was formulated using voice recognition technology and unfortunately sound alike errors may occur.
== END 2020-11-08 14:01 | disposition home or self-care (01) ==
LOC: PC 14:00
PROVIDERS: ATTEND Nurse Practitioner Family
DX: Z51.5 Encounter for palliative care (principal); E11.622 Type 2 diabetes mellitus with other skin ulcer; L97.329 Non-pressure chronic ulcer of left ankle with unspecified severity; L03.116 Cellulitis of left lower limb; F02.81 Dementia in other diseases classified elsewhere, unspecified severity, with behavioral disturbance; Z79.4 Long term (current) use of insulin; Z66 Do not resuscitate

== ENCOUNTER 2020-11-20 16:00 | Outpatient (CLI) | payer MEDICARE, OTHER ==
--- NOTE | 2020-11-20 18:28 | CONSULTATION NOTE ---
Palliative Care Follow Up - Referral Referring Provider: JANES Beard Time of Visit: 8124-0186 Referral setting: Assisted living Referral Reason: Wounds/Dementia/Parkinsons' Disease - Information Sources Records reviewed: Previous records reviewed History/Review of Systems obtained from: Family (daughterRadha in person and /ISABELL Ortiz via phone), Other (ABIOLA HeatonMay) Exam limitations: Clinical condition (Advanced Dementia) - History of Present Illness Update Brief HPI Update: This is an 80-year-old gentleman who presents at [facility] in follow- up due to 3 wounds to left lower extremity, history of Parkinson's disease, Parkinson's dementia, and protein calorie malnutrition in the setting of diabetes mellitus seen today with N95 cover and daughter, Radha present. On 11/03 the patient was noted to have developed a wound to his left lateral ankle and localized care was provided per facility protocol. On 11/08 the patient was seen by this HEAD OF TRAINING AND DEVELOPMENT and wound care orders were placed as well as home health nursing orders. Unfortunately, the facility has been 8 able to obtain Santyl from [facility] pharmacy at this time. The wound to his left knee and left garcia are resolving. The wound to his left lateral ankle remains evident but there is no longer evidence of cellulitis. The patient is presently on a 2-week course of doxycycline. Home health nursing was to start today, 11/20 however, DO and received a call today that it would be another week before initiation. The patient has been showing more signs of decline sleeping through at least one meal during the day. He is not as engaged and interactive per facility staff and daughter's report.He has lost approximately 24 pounds over the last year. There is evidence of muscular atrophy throughout. The patient was diagnosed with Parkinson's disease approximately 20 years ago. He first noted signs and symptoms when he was running when there is not a swing with his left arm. He was an avid runner. He also developed a tongue thrust that was eventually controlled and managed with deep brain stimulator that was p laced in 2012. He progressed to the point that he began requiring carbidopa/levodopa. The patient was followed at the [facility] neurology for many years. The battery for his DBS was last changed approximately 3 years ago. Due to the patient's progression of his disease and difficulty leaving the facility the patient's has elected that she would not wish to have the battery and the DBS replaced. Due to recent decline the patient has not always been allowing administration of his carbidopa/levodopa. The patient began developing cognitive issues in the last few years. As it was becoming increasingly difficult for the patient spouse for care for him at home he transition to the memory care unit in December 2018. He continues to enjoy fidgeting but instead of opening his eyes and engaging with his daughter he is opting to keep them closed. There is no evidence of pain or distress. He is sleeping more throughout the day. Patient is seen out of bed in his tilt in space wheelchair outside with his daughter, Radha present. Past Medical History: Patient has a past medical history of advanced Parkinson's disease status post deep brain stimulation surgery in 2011(two battery changes May 2015 and March [address] Jose Egan), Parkinson's associated dementia, questionable Lewy body dementia, diabetes mellitus type 2, BPH, history of falls. Social History - Living Situation Living arrangement: Assisted living Support System: The patient was residing at home until December 2018 when he transition to [facility] care unit. Prior to his transition to [facility] the patient was receiving caregiving from his . He and his have been for approximately 60 years. The patient was always an active individual and on the go. He was a runner and skier. He always enjoyed gardening and reading. He and his , Diana have 3 children, one girl and 2 boys. Their daughter, Radha lives locally. The patient is way previously belong to a Parkinson's support group. The patient's spouse is presently visiting her sister in [place] leaving the patient's side in approximately 2 years. It is a much-needed and well deserved trip that she has been enjoying. Medications/Allergies - Medications Home Medications: Ambulatory Orders Medication Instructions Recorded Confirmed Carbidopa/Levodopa [Carbidopa-Levo 1.5 tab PO Q3HR 09/18/18 11/20/20 ER 25-100 Tab] Finasteride 5 mg PO DAILY 09/18/18 11/20/20 Insulin Glargine [Lantus Solostar] 18 units SUBQ DAILY 09/18/18 11/20/20 Quetiapine Fumarate 50 mg PO QPM 09/18/18 11/20/20 Tamsulosin HCl [Flomax] 0.4 mg PO DAILY 09/18/18 11/20/20 Ipratropium [place] 1 spray NS .TIDAC 06/14/19 11/20/20 Senna [Senokot] 2 tab PO QPM MDD hold for loose 06/14/19 11/20/20 stools Acetaminophen 500 mg PO Q4H PRN 07/07/19 11/20/20 Senna [Senokot] 8.6 mg PO BID PRN 07/07/19 11/20/20 polyethylene glycoL 3350 [Miralax] 17 g PO DAILY MDD hold for loose 08/24/19 11/20/20 stools Magnesium Hydroxide [Milk of 30 ml PO DAILY PRN MDD no BM in 3 07/07/20 11/20/20 Magnesia] days Senna [Senokot] 8.6 mg PO DAILY 07/07/20 11/20/20 - Allergies Allergies/Adverse Reactions: Allergies Allergy/AdvReac Type Severity Reaction Status Date / Time No Known Drug Allergies Allergy Verified 11/20/20 20:10 Review of Systems - Constitutional Constitutional: reports: Fatigue, Poor appetite (not engaging in at least one meal daily), Weight loss (weight 146.4lb 11/17/20; weight 170.6lb 07/04/2019). denies: Fever - Eyes Eyes: reports: Corrective lenses - Ears, Nose & Throat Ears, Nose & Throat: reports: Hearing loss, Hearing aids, Other ( perceives nasal congestion with meals that is controlled with nasal spray) - Cardiovascular Cardiovascular: denies: Edema - Respiratory Respiratory: denies: Cough - Gastrointestinal Gastrointestinal: reports: Constipation (controlled with bowel regimen), Other (requires 1:1 meal assistance,decrese in oral intake). denies: Abdominal pain, Vomiting - Genitourinary Genitourinary: reports: Incontinence - Musculoskeletal Musculoskeletal: reports: Stiffness, Muscle weakness, Assistive devices, Transfer issues - Integumentary Integumentary: reports: Other (wound left ankle; scab to left knee; resolving wound to left garcia.) - Neurological Neurological: reports: General weakness, Memory problems - Psychiatric Psychiatric: denies: Behavior disturbances (controlled with seroquel) - Endocrine Endocrine: reports: Diabetes type 2 - Hematologic/Lymphatic Hematologic/Lymph: denies: Recurrent infections - All Other Systems All Other Systems: reports: Reviewed and negative (Review of systems is limited as patient is a poor historian due to dementia. Review of systems supplemented by a facility [facility] and Radha medina.) Physical Exam - Vital Signs Temperature: 36.3 C Pulse Rate: 77 Blood Pressure: 110/62 (left arm) - Physical Exam General Appearance: positive: No acute distress, Alert, Other (frail, elderly man OOB in tilt in space wheelchair, not opening eyes and keeping them closed despite request) Eyes Bilateral: positive: Normal inspection ENT: positive: No signs of dehydration, Other (+hearing aids in place bilaterally) Neck: positive: Trachea midline Cardiovascular: positive: Regular rate & rhythm, Systolic murmur (soft 2/6 ALEENA, established) Respiratory: positive: No respiratory distress, Breath sounds nml. negative: Rales Abdomen: positive: Non-tender, Soft, Nml bowel sounds, Other (bladder non distended) Skin: positive: Wound (1)Left lateral ankle: central ulceration that isdry with darkened base with desimiated edges appx 1.5cmx 1cm without discharge or surroudning erythema; 2)scab to left knee without erythema or discharge; 3) Skin teartoleftshin with dressing intact appx 0.5cm, resolving without evidence of infection) Extremities: positive: No pedal edema, Other (+generalized muscular atrophy) Neurologic/Psychiatric: positive: Disoriented to person, Disoriented to place, Disoriented to time, Weakness, Other (nonverbal today; +strong UE cement patcher) Palliative Care - POLST Patient has POLST: Yes POLST Status: DNR, Selective Treatment Pain: No pain Performance Status: When the patient moved into [facility] in December 2018 he was 1 person assist with a gait belt. He is subsequently transitioned to a nonambulatory state. He is incontinent of bowel and bladder. Requires one-to-one assistance with meals. Unable to self feed. FAS T7 C - Palliative Care Discussion: The patient unfortunately developed a wound to his left lateral ankle that is likely multifactorial given his nonambulatory state and some underlying pressure as well as his diabetes mellitus as well as resolving wounds to his left knee and left garcia. Did make a suggestion to the patient's daughter to obtain pool noodles to provide buffering and a bumper to the patient's lower extremities. Unfortunately, Santyl has not been obtained and has been difficult to achieve getting home health nursing into the facility. Please see HPI for further details. Contacted [facility] as an alternative however would not be able to come into the facility until the end of the week. The patient has appropriately responded to oral doxycycline course for cellulitis with no evidence to his lower extremity wounds. The patient's daughter expresses fear that the patient would require amputation to his lower extremities. Reassurance provided and will need direct wound care. In the interim until Santyl arrives we will continue Xeroform dressing to left lateral ankle wound. Given the patient has had an approximate 24 pound weight loss in slightly over a year, 14% weight loss, generalized muscle atrophy, wounds, and overall generalized decline in the setting of advancement of his Parkinson's disease and Parkinson's dementia it would be appropriate to transition to hospice services. Lengthy discussion was had with the patient's daughter and /DPOA regarding transitioning to hospice services and the support within the facility. All p arties are in agreement to move forward with questions answered and addressed. The patient spouse/DPOA and daughter ultimately wish to focus on comfort measures within this facility environment so he may remain in his familiar environment and not go out to hospital. They would like to see that his wounds resolve or near resolve with attention and care. The patient's spouse appears to be at peace with this decision. The patient's daughter and expresses that the spouse herself has harbored guilt for the patient to not be able to stay within his home setting due to increasing care needs. She is ultimately able to do something for herself and is enjoying her trip to [place]. The patient spouse would benefit from social work support moving forward from the hospice team as well as nursing. Would also benefit from continued normalization of her feelings of loss with the spouse. Impression and Recommendations - Palliative Care Impression: This is a 29-year-old gentleman with with advanced Parkinson's disease, Parkinson's dementia, diabetes mellitus, and 3 wounds to left lower extremity with resolved cellulitis. The patient has demonstrated protein calorie malnutrition with 14% weight loss over approximately 1 year. Has the patient would benefit from direct wound care and the family wishes to focus on quality of life and symptom management in the facility environment it is appropriate to transition to hospice services. Palliative care to continue to provide support for symptom management, care coordination, and anticipatory guidance until a transition to hospice services occurs. Recommendations/Counseling Done: 1. Protein calorie malnutrition. Patient has had a 24lb weight loss since July 2019, approximately 14% weight loss. This is not unexpected given advancement of the patient's underlying comorbidities including his Parkinson's disease and dementia. Continue one-on-one during mealtimes and assistance. Continue to encourage foods that the patient enjoys. Continue to monitor weight loss trends. 2.Left garcia wound. Resolving. No evidence of cellulitis. Continue to cleanse with normal saline, pat dry, apply 0 phone to size of wound, cover with border gauze or light dressing 3 times a week or as needed if soiled until resolved. Continue to monitor for signs or symptoms of infection. 3. Left lateral wound. Multifactorial with underlying diabetes mellitus as well as pressure contributing. It has not been effective for the patient to have home health nursing initiated despite multiple attempts. Will discontinue signature home health nursing request. Patient will transition to Hospice services And will provide direct wound care with a focus on comfort. As Santyl has not arrived in the interim may continue to cleanse with normal saline, pat dry, apply Xeroform to the site of the wound, covered with border gauze or leg dressing 3 times a week as needed if soiled and then return to Santyl order as previously written on 11/09/2020. Continue to monitor for signs and symptoms of infection. 4. Cellulitis to left lateral ankle and left knee, resolved. Complete doxycycline course as ordered for entire 14-day course. 5. Constipation. Sedentary lifestyle contributing. Continue senna 8.6 mg in the morning and 17.2 mg in the evening. Continue MiraLAX 17 g daily. Continue to monitor and adjust bowel regimen as needed. 6. Lewy body dementia due to Parkinson's disease. Chronic. Progressive. Supportive care. Fall precautions. No behavioral concerns reported by staff. On no disease modifying agents. Continue quetiapine 50 mg nightly. Disease is progressive and will benefit from transition to hospice services. 7. Parkinson's disease. Diagnosed over 20 years ago. DBS placed in 2012. Has been followed by [facility] neurology. Chronic. Progressive. Supportive care. Continue use of tilt in space wheelchair for support and transfers. Patient spouse has elected not to replace battery for DBS. Continue carbidopa/levodopa as ordered. Continue to focus on comfort. 8. Advanced care planning. POLST in place as DN AR with selective interventions. Patient's spouse and daughter are recognizing generalized decline and wish to focus on quality of life and symptom management within the facility environment. They recognize that it would be a taxing and difficult effort for the patient to leave his present environment. Given these goals wished to transfer to would be hospice services for support within the patient's home environment. Given the goal is on comfort reviewed medications and will discontinue vitamin B-12 and vitamin D with 's permission. Total time spent 50 minutes with greater than 50% of this spent in counseling and coordination of care with daughter Radha and /DPOA Diana and May CULVER; review of escalation vs de-escalation of care; review of hospice kathy osophy and services; examination of patient; review of wounds; review of symptom management and anticipatory guidance. Updated patient's PCP regarding transfer to hospice. Disclaimer: The chart note was formulated using voice recognition technology and unfortunately sound alike errors may occur.
== END 2020-11-20 16:01 | disposition home or self-care (01) ==
LOC: PC 16:00
PROVIDERS: ATTEND Nurse Practitioner Family
DX: Z51.5 Encounter for palliative care (principal); E11.622 Type 2 diabetes mellitus with other skin ulcer; L97.329 Non-pressure chronic ulcer of left ankle with unspecified severity; S81.812D Laceration without foreign body, left lower leg, subsequent encounter; E46 Unspecified protein-calorie malnutrition; R63.4 Abnormal weight loss; K59.00 Constipation, unspecified; G31.83 Neurocognitive disorder with Lewy bodies; F02.80 Dementia in other diseases classified elsewhere, unspecified severity, without behavioral disturbance, psychotic disturbance, mood disturbance, and anxiety; Z79.899 Other long term (current) drug therapy; Z79.4 Long term (current) use of insulin; Z66 Do not resuscitate